=== PATIENT | female | born 1955 | race American Indian/Alaskan Native ===

== ENCOUNTER 2018-08-14 13:37 | Day surgery (SDC) | payer OTHER, SELFPAY ==
[2018-08-14 14:03] VITALS: BP 159/98; PULSE 91; RESP 16; TEMP 37.4; O2SAT 98; BMI 32.3
[2018-08-14] MEDS: LACTATED RINGERS 1,000 ML 42 ML IV (14:26)
--- NOTE | 2018-08-14 15:03 | PM.HP.1 ---
History of Present Illness Chief complaint: colonoscopy w/biopsy [id number] Patient History Medical History Allergic rhinitis (Chronic 1957) Anxiety (Chronic Unknown) Depression (Chronic Unknown) Hearing loss (Chronic 2015) Osteoarthritis (Chronic 1977) Osteopenia (Chronic 2010) Osteoporosis (Chronic Unknown) PTSD (post-traumatic stress disorder) (Chronic Unknown) Sleep apnea (Chronic Unknown) Tinnitus of both ears (Chronic 2014) Urinary incontinence (Chronic 2016) Chickenpox (Resolved 1959) Fractures (Resolved 2015) History of musculoskeletal cancer (Resolved 2011) Measles (Resolved 1960) Mumps (Resolved 1968) Soft tissue sarcoma of left thigh (Resolved 2011) Surgical History H/O colonoscopy with polypectomy (Chronic) Hx of myomectomy (Resolved 2009) Hx of surgical procedure (Resolved 2011) Hx of surgical procedure (Resolved ~2013) Hx of thumb surgery (Resolved 2009) S/P removal of thyroid nodule (Resolved 10/2012) History of gastric bypass (2010) Status post surgery (12/28/08) Family & Social History Social History: household members spouse Tobacco & Substance use: Smoking Status Former smoker alcohol intake never Meds Home Medications Medication Instructions Recorded Confirmed Type [COMPOUNDED HORMONES] TOPICAL QDAY #0 07/05/12 04/19/18 History MULTIVITAMIN (Fruity Vitamin) 1 tabs PO #0 08/19/12 04/19/18 History [MOVE FREE] #0 08/19/12 04/19/18 History nitrofurantoin monohyd/m-cryst 100 mg PO PRN PRN #30 cap 03/16/17 04/19/18 Rx [Macrobid] [Prevagen extra ] #0 05/31/17 04/19/18 History Bimatoprost (LATISSE) 1 drp OPHTH HS #3 ml 10/19/17 04/19/18 Rx jxkpdgqf-jucvvgtei-VX 1 drp OTIC TID #10 ml 12/18/17 04/19/18 Rx albuterol sulfate HFA 90 1 - 2 puff INHALATION Q4HP PRN #18 01/31/18 04/19/18 Rx mcg/actuation aerosol inhaler gram bupropion HCl XL 300 mg 24 hr 300 mg PO QAM #90 tab 01/31/18 04/19/18 Rx tablet, extended release epinephrine 0.3 mg/0.3 mL 0.3 mg SUBCUT PRN PRN #1 kit 01/31/18 04/19/18 Rx injection, auto-injector tramadol 50 mg tablet 100 mg PO .COMPLEX PRN #240 tab 01/31/18 04/19/18 Rx MDD 8 tab nystatin 100,000 unit/gram topical 1 applictn TOP TID #30 gram 02/16/18 04/19/18 Rx ointment Est/Tst/Prog/DHEA See Label Instructions TOP .QDAY 03/07/18 04/19/18 Rx #30 ml alprazolam 1 mg tablet 1 mg PO BID PRN #180 tab 03/12/18 04/19/18 Rx clonazepam 0.5 mg tablet 0.5 mg PO HSP #90 tab 03/12/18 04/19/18 Rx loperamide 2 mg capsule 2 mg PO Q2-4H #240 cap 03/29/18 04/19/18 Rx teriparatide 20 mcg/dose (600 20 mcg SUBCUT DAILY #2.4 ml 04/19/18 04/19/18 Rx mcg/2.4 mL) subcutaneous pen injector celecoxib 200 mg capsule 200 mg PO DAILY #30 cap 08/07/18 Rx teriparatide [Forteo] 20 mcg SUBCUT DAILY 08/14/18 08/14/18 History Allergies Allergy/AdvReac Type Severity Reaction Status Date / Time sulfamethoxazole Allergy Severe HIVES AND Verified 08/14/18 14:18 [From ] THROAT SWELLING trimethoprim [From ] Allergy Severe HIVES AND Verified 08/14/18 14:18 THROAT SWELLING venom-honey bee Allergy Severe ANAPHYLAXIS Verified 08/14/18 14:18 [BEE VENOM (HONEY BEE)] ciprofloxacin [CIPROFLOXACIN] Allergy Intermediate ringing in Verified 08/14/18 14:18 ears, swollen gums, itchy, peanut [PEANUT] Allergy Intermediate ITCHING Verified 08/14/18 14:18 alendronate sodium AdvReac Severe FELT Verified 08/14/18 14:18 [ALENDRONATE SODIUM] TERRIBLE, CHEST PAINS ergot alkaloids AdvReac Severe I DON'T Verified 08/14/18 14:18 [ERGOT ALKALOIDS] FEEL RIGHT, FEELING LIKE I'M FALLING BACKWARD sumatriptan [SUMATRIPTAN] AdvReac Mild FELT Verified 08/14/18 14:18 WEIRD FOR 2 DAYS Exam Vital Signs (past 8 hours): - 08/14/18 14:03 Temperature 99.4 F Pulse Rate 91 H Respiratory Rate 16 Blood Pressure 159/98 H Pulse Oximetry 98 Oxygen Delivery Method Room Air Narrative Exam Narrative: Oropharynx free of lesions Chest clear to auscultation percussion Cardiac exam reveals no S3 or murmur Assessment & Plan Plan: Assessment/Plan Narrative: Personal and family history of colon polyps need for follow-up colonoscopy. History of PTSD and disability We will plan on scheduling her colonoscopy at the hospital with anesthesia due to PTSD. Risks benefits alternatives have been explained.
--- NOTE | 2018-08-14 15:08 | PM.OP.ENDO ---
Operative Date/Time/Diagnoses Date of procedure: 08/14/18 Time of procedure: 15:08 Pre-op diagnosis: See indications and findings Procedure & Clinicians Study performed: Colonoscopy Same procedure as scheduled: Yes Indications: Personal history and family history of colon polyps Surgeon: Anthony Torrez Procedure Notes Procedure in detail: After informed consent was obtained the patient was placed in left lateral decubitus position. The video colonoscope was introduced the rectum slowly advanced to the cecum. On slow withdrawal mucosa was carefully examined. The scope was removed patient tolerated the procedure well. Blood loss none Complications none Sedation general per anesthesia Findings 1. Tortuous colonoscopy to cecum. No polyp seen. Patient should have follow-up colonoscopy in 5 years.
[2018-08-14 15:46] VITALS: BP 117/78; PULSE 83; TEMP 36.3; O2SAT 98
[2018-08-14 15:54] VITALS: BP 140/83; PULSE 72; RESP 15; O2SAT 95
[2018-08-14 16:02] VITALS: BP 139/78; PULSE 67; RESP 25; O2SAT 98
[2018-08-14 16:22] VITALS: BP 138/86; PULSE 59; RESP 12; TEMP 36.3; O2SAT 100
== END 2018-08-14 16:30 | disposition home or self-care (01) ==
PROVIDERS: PCP Family Medicine; Visit Provider Internal Medicine Gastroenterology
PROC: 0DJD8ZZ Inspection of Lower Intestinal Tract, Via Natural or Artificial Opening Endoscopic (ICD-10-PCS; CPT 45378; principal; 2018-08-14 15:00)
DX: Z86.010 Personal history of colon polyps (principal); E66.9 Obesity, unspecified; G47.33 Obstructive sleep apnea (adult) (pediatric); Z87.891 Personal history of nicotine dependence; F43.10 Post-traumatic stress disorder, unspecified
CPT/HCPCS: 45378; J2405; J2704; J3010

== ENCOUNTER 2019-02-07 18:25 | Emergency (ER) | payer MEDICARE, OTHER, SELFPAY ==
[2019-02-07 18:31] VITALS: BP 134/79; PULSE 76; RESP 19; TEMP 37; O2SAT 97; BMI 34.3
--- NOTE | 2019-02-07 19:05 | DI.RAD.S_ITS ---
PROCEDURE: XR CHEST 1V INDICATIONS: chest pain TECHNIQUE: One view of the chest was acquired. COMPARISON: None. FINDINGS: A portion of the left lateral chest is obscured. Surgical changes and devices: None. Lungs and pleura: Lungs are clear. No pleural effusions or pneumothorax. Mediastinum: Mediastinal contours appear normal. Heart size is normal. Bones and chest wall: No suspicious bony lesions. Overlying soft tissues appear unremarkable. IMPRESSION: No acute process as visualized. Dictated by: Darline Hernandez M.D. on 02/07/2019 at 20:10 Approved by: Darline Hernandez M.D. on 02/07/2019 at 20:11
[2019-02-07 19:10] LABS: Add Manual Diff / Slide Review NO; Basophils Absolute Auto 0 /uL (0-100); Basophils Percent Auto 0.6 % (0-2); Eosinophils Absolute Auto 900 /uL (0-450); Eosinophils Percent Auto 12.4 % (2-4); Hematocrit 30.4 % (36-46); Lymphocytes Absolute Auto 900 /uL (1100-4500); Lymphocytes Percent Auto 12.2 % (25-40); Mean Corpuscular Hemoglobin 26.8 PG (26-34); Mean Corpuscular Volume 81.2 fL (80-100); Monocytes Absolute Auto 700 /uL (0-900); Monocytes Percent Auto 9.7 % (3-14); Neutrophils Absolute Auto 4700 /uL (1500-7000); Neutrophils Percent Auto 65.1 % (50-75); Platelet Count 316 X10^3/uL (150-400); Red Blood Cell Count 3.74 X10^6/uL (4.0-5.2); Red Cell Distribution Width 15.3 % (11.6-14.8); White Blood Cell Count 7.2 X10^3/uL (4.5-11.0)
--- NOTE | 2019-02-07 19:10 | ED.SOB ---
HPI - SOB/Dyspnea General Chief Complaint: Shortness of Breath/Dyspnea Stated Complaint: SOB WHEEZING Time Seen by Provider: 02/07/19 18:44 Source: patient and family Mode of arrival: ambulatory Limitations: no limitations History of Present Illness 64-year-old female, former smoker with history of asthma presents with a few days of wheezing and trouble breathing. She has been using her puffer at home but does not have a spacer. She has a nebulizer but has been out of nebs. She has had no productive cough and denies fever or shaking chills. She had a dental procedure and was placed on amoxicillin and oxycodone. She has taken penicillin before and had no trouble. She stopped taking amoxicillin when she developed diarrhea. She follows up with her dentist in a few days. She has no widespread rash, swelling of lips, tongue or throat. Complaint: shortness of breath Onset (ago): day(s) Context: allergen exposure Severity: moderate Consistency/Duration: constant Relieving factors: nothing Exacerbating factors: nothing Known history of: asthma Associated symptoms: denies other symptoms Treatment prior to arrival: bronchodilator Related Data Home oxygen amount: none Previous Rx's Medication Instructions Recorded Disabled Parking Permit See Rx Instructions .ROUTE 12/27/18 .COMPLEX #1 each teriparatide 20 mcg/dose (600 20 mcg SUBCUT DAILY #2.4 ml 12/27/18 mcg/2.4 mL) subcutaneous pen injector albuterol sulfate HFA 90 2 puff INHALATION Q6H PRN #6.7 gram 12/30/18 mcg/actuation aerosol inhaler lorazepam 1 mg tablet See Rx Instructions PO BID PRN #45 01/23/19 tab tramadol 50 mg tablet 50 mg PO BID PRN #30 tab 01/23/19 albuterol sulfate 2.5 mg INHALATION Q4-6H PRN #90 ml 02/07/19 prednisone 20 mg PO DAILY #5 tab 02/07/19 Allergies Allergy/AdvReac Type Severity Reaction Status Date / Time sulfamethoxazole Allergy Severe HIVES AND Verified 08/14/18 14:18 [From ] THROAT SWELLING trimethoprim [From ] Allergy Severe HIVES AND Verified 08/14/18 14:18 THROAT SWELLING venom-honey bee Allergy Severe ANAPHYLAXIS Verified 08/14/18 14:18 [BEE VENOM (HONEY BEE)] ciprofloxacin [CIPROFLOXACIN] Allergy Intermediate ringing in Verified 08/14/18 14:18 ears, swollen gums, itchy, peanut [PEANUT] Allergy Intermediate ITCHING Verified 08/14/18 14:18 alendronate sodium AdvReac Severe FELT Verified 08/14/18 14:18 [ALENDRONATE SODIUM] TERRIBLE, CHEST PAINS ergot alkaloids AdvReac Severe I DON'T Verified 08/14/18 14:18 [ERGOT ALKALOIDS] FEEL RIGHT, FEELING LIKE I'M FALLING BACKWARD sumatriptan [SUMATRIPTAN] AdvReac Mild FELT Verified 08/14/18 14:18 WEIRD FOR 2 DAYS Review of Systems Constitutional Denies chills, Denies fever(s), Denies lethargy and Denies weakness Eyes Denies change in vision, Denies eye discharge, Denies irritation and Denies loss of vision ENT Ears, Nose, Mouth, and Throat: Denies change in voice, Denies neck pain and Denies sore throat Cardiovascular Denies chest pain, Denies irregular heart rhythm, Denies lightheadedness, Denies palpitations, Reports dyspnea, Denies dyspnea on exertion and Denies orthopnea Respiratory Reports cough, Reports dyspnea, Denies dyspnea on exertion and Denies wheezing Gastrointestinal Gastrointestinal: Denies abdominal pain, Denies change in bowel habits, Denies diarrhea, Denies nausea and Denies vomiting Genitourinary Denies hematuria, Denies flank pain, Denies urinary incontinence and Denies urinary urgency Musculoskeletal Denies neck pain Integumentary/Breasts Denies pruritus, Denies erythema, Denies rash and Denies wounds Neurologic Denies confusion, Denies loss of vision and Denies weakness Psychiatric Denies anxiety, Denies confusion, Denies depression, Denies homicidal ideation and Denies suicidal ideation Endocrine Denies palpitations Hematologic/Lymphatic Denies easy bruising Allergic/Immunologic Denies wheezing [facility] Medical History Allergic rhinitis (Chronic 1957) Anxiety (Chronic ~1975) Depression (Chronic ~1975) Hearing loss (Chronic 2014) Osteoarthritis (Chronic 1977) Osteopenia (Chronic 2009) Osteoporosis (Chronic ~2006) PTSD (post-traumatic stress disorder) (Chronic ~1975) Sleep apnea (Chronic Unknown) Tinnitus of both ears (Chronic 2014) Urinary incontinence (Chronic 2015) Vertigo (Chronic ~2004) Chickenpox (Resolved 1959) Fractures (Resolved 2015) History of musculoskeletal cancer (Resolved 2011) Measles (Resolved 1960) Mumps (Resolved 1968) Soft tissue sarcoma of left thigh (Resolved 2011) Surgical History Anesthesia (Resolved) H/O colonoscopy with polypectomy (Resolved) History of knee replacement (Resolved ~01/2017) Hx of myomectomy (Resolved 2009) Hx of surgical procedure (Resolved 2011) Hx of surgical procedure (Resolved ~2013) Hx of thumb surgery (Resolved 2009) S/P removal of thyroid nodule (Resolved 10/2012) History of gastric bypass (2010) Status post surgery (12/28/08) Family History Mother Diabetes mellitus Hypertension Heart disease Father Homicide Brother Cancer Grandfather Cancer Grandmother No problems noted. Grandfather Accident Grandmother Stroke Social History marital status: number of children: 2 household members: spouse lives independently: Yes education level: other ([employer]) occupational status: other (retired) Smoking Status: Former smoker alcohol intake: never substance use type: marijuana (Pain control with the edibles or oils on the site of the pain) Family History Mother Diabetes mellitus Hypertension Heart disease Father Homicide Brother Cancer Grandfather Cancer Grandmother No problems noted. Grandfather Accident Grandmother Stroke Social History marital status: number of children: 2 household members: spouse lives independently: Yes education level: other ([employer]) occupational status: other (retired) Smoking Status: Former smoker alcohol intake: never substance use type: marijuana (Pain control with the edibles or oils on the site of the pain) Exam Narrative Exam Narrative: GENERAL: 64-year-old female with obvious trouble breathing, wheeze audible from the door HEAD: Atraumatic. Normocephalic. No temporal or scalp tenderness. EYES: Pupils equal round and reactive. Extraocular motions intact. No scleral icterus. No injection or drainage. ENT: Nose without bleeding, purulent drainage or septal hematoma. Throat without erythema, tonsillar hypertrophy or exudate. Uvula midline. Airway patent. NECK: Trachea midline. No JVD or lymphadenopathy. Supple, nontender, no meningeal signs. CARDIOVASCULAR: Regular rate and rhythm without murmurs, gallops, or rubs. RESPIRATORY: Expiratory wheeze in all perez, no other signs of obvious respiratory distress GASTROINTESTINAL: Abdomen soft, non-tender, nondistended. No hepato-splenomegaly, or palpable masses. No guarding. EXTREMITIES: No clubbing, cyanosis, or edema. No joint tenderness, effusion, or edema noted. BACK: Nontender without deformity or crepitance. No flank tenderness. NEURO: AOx3. SKIN: No rash or erythema. Initial Vital Signs Initial Vital Signs: Vital Signs Temperature 98.6 F 02/07/19 18:31 Pulse Rate 76 02/07/19 18:31 Respiratory Rate 19 02/07/19 18:31 Blood Pressure 134/79 02/07/19 18:31 Pulse Oximetry 97 02/07/19 18:31 Course Orders Ordered: ED Orders 02/07/19 18:44 EKG-12 Lead Routine 02/07/19 19:05 XR chest 1V Stat EKG-12 Lead Stat 02/07/19 19:06 Complete Blood Count AUTO DIFF Stat Comprehensive Metabolic Panel Stat Lipase Stat Partial Thromboplastin Time Stat Prothrombin Time INR Stat Troponin & CK Cardiac Panel Stat Discontinued Medications Albuterol/Ipratropium (Duoneb) 3 ml INH NOW ONE Stop: 02/07/19 19:25 Last Admin: 02/07/19 19:26 Dose: 3 ml Prednisone (Deltasone) 40 mg PO NOW ONE Stop: 02/07/19 19:20 Reevaluation(s) Reevaluation #1: Notable improvement after DuoNeb. Patient given a spacer by respiratory Vital Signs - 8 hr 02/07/19 18:31 02/07/19 19:26 02/07/19 19:52 Temperature 98.6 F Pulse Rate 76 76 81 Respiratory Rate 19 16 19 Blood Pressure 134/79 Blood Pressure [Left Arm] 118/83 Pulse Oximetry 97 95 95 MDM - SOB/Dyspnea Lab Data Result diagrams: 02/07/19 19:06 02/07/19 19:06 Lab Results 02/07/19 02/07/19 02/07/19 Range/Units 19:06 19:06 19:06 WBC 7.2 (4.5-11.0) X10^3/uL RBC 3.74 L (4.0-5.2) X10^6/uL Hgb 10.0 L (12.0-16.0) g/dL Hct 30.4 L (36-46) % MCV 81.2 (80-100) fL MCH 26.8 (26-34) PG MCHC 33.0 (30-36) % RDW 15.3 H (11.6-14.8) % Plt Count 316 (150-400) X10^3/uL Neut % (Auto) 65.1 (50-75) % Lymph % (Auto) 12.2 L (25-40) % Wythe % (Auto) 9.7 (3-14) % Eos % (Auto) 12.4 H (2-4) % Baso % (Auto) 0.6 (0-2) % Neut # (Auto) 4700 (5531-2846) /uL Lymph # (Auto) 900 L (7615-9060) /uL Wythe # (Auto) 700 (0-900) /uL Eos # (Auto) 900 H (0-450) /uL Baso # (Auto) 0 (0-100) /uL PT 11.7 (10.1-12.7) SECONDS INR 1.0 (0.9-1.3) APTT 29 (26.4-36.2) SECONDS Sodium 140 (137-145) mmol/L Potassium 3.5 (3.4-5.1) mmol/L Chloride 109 H (98-107) mmol/L Carbon Dioxide 23 (22-32) mmol/L BUN 27 H (7-17) mg/dL Creatinine 0.60 (0.52-1.04) mg/dL Estimated GFR > 60.0 (>60) mL/min BUN/Creatinine Ratio 45.0 H (6-22) Glucose 93 (80-110) mg/dL Calcium 8.9 (8.4-10.2) mg/dL Total Bilirubin 0.4 (0.2-1.3) mg/dL AST 25 (14-36) IU/L ALT 22 (9-52) IU/L Alkaline Phosphatase 117 (38-126) U/L Total Creatine Kinase 200 H (30-135) U/L CK-MB (CK-2) 2.09 (<2.37) ng/mL CK-MB (CK-2) Rel Index 1.0 L (1.5-5.0) % Troponin I < 0.012 (0.01-0.034) ng/mL Total Protein 6.5 (6.3-8.2) g/dL Albumin 3.7 (3.5-5.0) g/dL Globulin 2.8 (1.7-4.1) g/dL Albumin/Globulin Ratio 1.3 (1.0-2.8) Lipase 34 (23-300) U/L MDM Narrative Medical decision making narrative: Patient develops wheezing and increased use bronchodilators since a dental procedure. She has had no signs of allergic reaction such as urticaria or swelling of lips, tongue or throat. She does express some concern about the increased pollen and allergens in the air. We also discussed the histamine release that opioid medications cause. Allergic reaction to amoxicillin considered but thought less likely given other portions of the scenario. Discharge Plan Departure Patient Disposition: Home Clinical Impression: Asthma with exacerbation Qualifiers: Asthma severity: mild Asthma persistence: unspecified Qualified Code(s): J45.901 - Unspecified asthma with (acute) exacerbation Instructions: DI for Asthma -- Adult Activity Restrictions/Additional Instructions: *You have been diagnosed with [wheezing, likely a consequence of environmental allergens and pain medications.] *What to do: *Take medications as directed: Your prescriptions have been electronically transmitted to [facility] at your request *Follow up with your primary care provider in 2-3 days, call for an appointment. Let them know you were seen in the Emergency Department and that we ask that you be seen in follow up *Return to ER if you should have any new, worsening or concerning symptoms Prescriptions: New prednisone 20 mg tablet 20 mg PO DAILY Qty: 5 RF: 0 albuterol sulfate 2.5 mg /3 mL (0.083 %) solution for nebulization 2.5 mg INHALATION Q4-6H PRN (Reason: shortness of breath or wheezing) Qty: 90 RF: 0 No Action lorazepam 1 mg tablet See Rx Instructions PO BID PRN (Reason: insomnia or anxiety) Qty: 45 RF: 0 tramadol 50 mg tablet 50 mg PO BID PRN (Reason: pain) Qty: 30 RF: 0 Forteo 20 mcg/dose - 600 mcg/2.4 mL pen injector 20 mcg SUBCUT DAILY Qty: 2.4 RF: 0 Disabled Parking Permit See Rx Instructions .ROUTE .COMPLEX Qty: 1 RF: 0 albuterol sulfate 90 mcg/actuation HFA aerosol inhaler 2 puff INHALATION Q6H PRN (Reason: shortness of breath or wheezing) Qty: 6.7 RF: 1 Referrals: Lauren Talavera DO [Primary Care Provider] -
[2019-02-07 19:17] LABS: Prothrombin Time 11.7 SECONDS (10.1-12.7)
[2019-02-07 19:20] LABS: PTT Partial Thromboplastin Tim 29 SECONDS (26.4-36.2)
[2019-02-07 19:23] LABS: Alanine Aminotransferase 22 IU/L (9-52); Albumin 3.7 g/dL (3.5-5.0); Albumin Globulin Ratio 1.3 (1.0-2.8); Alkaline Phosphatase 117 U/L (38-126); Aspartate Aminotransferase 25 IU/L (14-36); Bilirubin Total 0.4 mg/dL (0.2-1.3); Blood Urea Nitrogen 27 mg/dL (7-17); Calcium 8.9 mg/dL (8.4-10.2); Carbon Dioxide 23 mmol/L (22-32); Chloride 109 mmol/L (98-107); Creatine Kinase 200 U/L (30-135); Estimated Glomerular Filt Rate > 60.0 mL/min (>60); Globulin 2.8 g/dL (1.7-4.1); Glucose 93 mg/dL (80-110); HEMOLYSIS < 15 (0-50); Lipase 34 U/L (23-300); Potassium 3.5 mmol/L (3.4-5.1); Sodium 140 mmol/L (137-145); Total Protein 6.5 g/dL (6.3-8.2)
[2019-02-07 19:26] VITALS: PULSE 76; RESP 16; O2SAT 95
[2019-02-07] MEDS: ALBUTEROL/IPRATROPIUM 3 ML AMPUL INH (19:26)
[2019-02-07 19:34] LABS: Troponin I < 0.012 ng/mL (0.01-0.034)
[2019-02-07 19:38] LABS: Creatine Kinase MB 2.09 ng/mL (<2.37)
[2019-02-07 19:52] VITALS: BP 118/83; PULSE 81; RESP 19; O2SAT 95
[2019-02-07] MEDS: predniSONE 20 MG TABLET 40 MG PO (20:04)
== END 2019-02-07 20:24 | disposition home or self-care (01) ==
PROVIDERS: Emergency Provider Emergency Medicine; PCP Family Medicine
DX: J45.901 Unspecified asthma with (acute) exacerbation (principal)
CPT/HCPCS: 36591; 71045; 80053; 82550; 82553; 83690; 84484; 85025; 85610; 85730; 93005; 93010; 94640; 99283; 99285

== ENCOUNTER → 2019-08-12 15:24 | Outpatient (CLI) | payer MEDICARE, OTHER, SELFPAY ==
--- NOTE | 2019-08-12 15:27 | DI.RAD.S_ITS ---
PROCEDURE: XR KNEE RT 3V INDICATIONS: Fell on right knee TECHNIQUE: 3 views of the knee were acquired. COMPARISON: , , KNEE 1-2 VIEWS RIGHT, 01/22/2017, 11:37. FINDINGS: Bones: No fractures or dislocations. No suspicious bony lesions. Soft tissues: No joint effusion. No suspicious soft tissue calcifications. IMPRESSION: Expected postoperative alignment No fracture Dictated by: Toney Rios M.D. on 08/12/2019 at 16:17 Approved by: Toney Rois M.D. on 08/12/2019 at 16:17
== END ==
PROVIDERS: PCP Family Medicine; Visit Provider Family Medicine
DX: M25.561 Pain in right knee (principal)
CPT/HCPCS: 73562

== ENCOUNTER → 2019-09-11 14:39 | Outpatient (CLI) | payer MEDICARE, OTHER, SELFPAY ==
--- NOTE | 2019-09-11 14:41 | DI.NM.S_ITS ---
PROCEDURE: NM FORREST PERF SPECT R&S PHARM Rest and pharmacological stress myocardial perfusion SPECT with gated imaging and ejection fraction RADIOPHARMACEUTICAL: 27.1 mCi Tc-99m tetrafosmin IV at rest and 26.8 mCi Tc-99m tetrafosmin IV at peak effect of pharmacological stress. [id number]-wjteznxy was performed. INDICATIONS: chest pain, abnormal ekg TECHNIQUE: Radiopharmaceutical was injected at peak stress test, and also at rest. SPECT images were obtained. SPECT myocardial perfusion images were displayed in short axis, horizontal long axis, and vertical long axis views. Gated images were reviewed using [employer] software. COMPARISON: None. CARDIAC STRESS: A pharmacologic stress test was performed under the supervision of an attending staff, using an infusion of lexiscan 0.4mg IV X1 . Hemodynamic data: There is normal blood pressure and heart rate response to pharmacologic stress. Symptoms: The patient denied anginal chest pain. Aminophylline: none EKG: No diagnostic changes of ischemia; no ectopy. FINDINGS: Raw data: There is good myocardial uptake of radiotracer. No significant motion artifacts. Kzjc-eh-yzwac ratio is 0.39 (normal is less than 0.38 for tetrafosmin tracer). Left ventricle function: Gated images demonstrate normal left ventricular wall thickening. No segmental wall motion abnormalities. No transient ischemic dilation; TID is 1.0 (normal less than 1.3). Left ventricle resting end diastolic volume is 98 mL. Left ventricle stress ejection fraction is 76%; normal range is above 45%. Myocardial perfusion: There is normal distribution of activity in the right and left ventricular myocardium. No fixed or reversible perfusion defects. IMPRESSION: Low risk, normal pharmaceutical nuclear stress test. 1) No perfusion evidence of ischemia or infarction. 2) Normal left ventricular size, wall motion, and systolic funcion (EF post stress 76%). 3) No ECG evidence of ischemia. 4) No angina during the study. 5) No prior nuclear stress test avaliable for comparison. Dictated by: Solomon Young MD on 09/12/2019 at 16:38 Approved by: Solomon Young MD on 09/12/2019 at 16:40
== END ==
PROVIDERS: PCP Family Medicine; Visit Provider Family Medicine
DX: R07.9 Chest pain, unspecified (principal); R94.31 Abnormal electrocardiogram [ECG] [EKG]
CPT/HCPCS: 78452; 93016; 93017; 93018; A9502; J2785

== ENCOUNTER → 2019-10-29 12:19 | Outpatient (CLI) | payer MEDICARE, OTHER, SELFPAY ==
--- NOTE | 2019-10-29 | DI.MG.S_ITS ---
BILATERAL DIGITAL SCREENING MAMMOGRAM 3D/2D WITH CAD: 10/29/2019 CLINICAL: Routine screening. Comparison is made to exams dated: 10/22/2017 mammogram - [facility], 08/22/2013 mammogram, and [facility] The tissue of both breasts is heterogeneously dense. This may lower the sensitivity of mammography. Current study was also evaluated with a Computer Aided Detection (CAD) system. There are benign calcifications in both breasts. There also are benign vascular calcifications in both breasts. No significant masses, calcifications, or other findings are seen in either breast. There has been no significant interval change. IMPRESSION: There is no mammographic evidence of malignancy. A 1 year screening mammogram is recommended. This exam was interpreted at Station ID: [id number]. NOTE: For mammograms, a report in lay terms will be sent to the patient. Approximately 15% of breast malignancies will not be visualized mammographically. In the management of a palpable breast mass, a negative mammogram must not discourage biopsy of a clinically suspicious lesion. Electronically Signed By: Collin mays/lacy:10/30/2019 10:56:51 letter sent: Normal Exam ACR BI-RADS Category 2: Benign Finding(s) [id number]
== END ==
PROVIDERS: PCP Family Medicine; Referring Provider Family Medicine; Visit Provider Family Medicine
DX: Z12.31 Encounter for screening mammogram for malignant neoplasm of breast (principal)
CPT/HCPCS: 77063; 77067

== ENCOUNTER → 2019-12-29 16:30 | Outpatient (CLI) | payer MEDICARE, OTHER, SELFPAY ==
[2019-12-30 22:38] LABS: COVID19 Sendout Not Detected (Not Detected)
== END ==
PROVIDERS: PCP Family Medicine; Visit Provider Registered Nurse
DX: R06.02 Shortness of breath (principal)
CPT/HCPCS: 87635

== ENCOUNTER → 2020-01-27 11:56 | Outpatient (CLI) | payer MEDICARE, OTHER, SELFPAY | PROVIDERS: PCP Family Medicine; Visit Provider Family Medicine | DX: R30.0 Dysuria (principal) | CPT/HCPCS: 87077; 87086; 87186 ==

== ENCOUNTER → 2020-04-13 15:02 | Outpatient (CLI) | payer MEDICARE, OTHER, SELFPAY ==
[2020-04-13 15:27] LABS: Add Manual Diff / Slide Review NO; Basophils Absolute Auto 100 /uL (0-100); Basophils Percent Auto 1.3 % (0-2); Eosinophils Absolute Auto 500 /uL (0-450); Eosinophils Percent Auto 4.8 % (2-4); Hematocrit 29.5 % (36-46); Hemoglobin 9.1 g/dL (12.0-16.0); Lymphocytes Absolute Auto 1700 /uL (1100-4500); Lymphocytes Percent Auto 16.8 % (25-40); Mean Corpuscular Hemoglobin 20.3 PG (26-34); Mean Corpuscular Volume 65.4 fL (80-100); Monocytes Absolute Auto 600 /uL (0-900); Monocytes Percent Auto 5.9 % (3-14); Neutrophils Absolute Auto 7200 /uL (1500-7000); Neutrophils Percent Auto 71.2 % (50-75); Platelet Count 411 X10^3/uL (150-400); Red Blood Cell Count 4.51 X10^6/uL (4.0-5.2); Red Cell Distribution Width 18.7 % (11.6-14.8)
[2020-04-13 15:59] LABS: Prothrombin Time 12.1 SECONDS (10.1-12.7)
[2020-04-13 16:04] LABS: Alanine Aminotransferase 14 IU/L (<35); Albumin 4.2 g/dL (3.5-5.0); Albumin Globulin Ratio 1.8 (1.0-2.8); Alkaline Phosphatase 117 U/L (38-126); Aspartate Aminotransferase 22 IU/L (14-36); BUN Creatinine Ratio 46.7 (6-22); Bilirubin Total 0.5 mg/dL (0.2-1.3); Blood Urea Nitrogen 21 mg/dL (7-17); Calcium 9.4 mg/dL (8.4-10.2); Carbon Dioxide 20 mmol/L (22-32); Chloride 108 mmol/L (98-107); Estimated Glomerular Filt Rate > 60.0 mL/min (>60); Globulin 2.4 g/dL (1.7-4.1); Glucose 106 mg/dL (80-110); HEMOLYSIS < 15 (0-50); Potassium 3.9 mmol/L (3.4-5.1); Sodium 139 mmol/L (137-145); Total Protein 6.6 g/dL (6.3-8.2)
[2020-04-13 17:00] LABS: Anisocytosis 1+; Hypochromasia 1+; Microcytosis 2+; Ovalocytes 1+; Platelet Estimate Adequate on smear; Poikilocytosis 1+
== END ==
PROVIDERS: PCP Family Medicine; Referring Provider Family Medicine; Visit Provider Family Medicine
DX: R23.8 Other skin changes (principal)
CPT/HCPCS: 36415; 80053; 85025; 85610

== ENCOUNTER → 2020-06-26 10:41 | Outpatient (CLI) | payer MEDICARE, OTHER, SELFPAY ==
[2020-06-26 12:20] LABS: Add Manual Diff / Slide Review NO; Basophils Absolute Auto 100 /uL (0-100); Basophils Percent Auto 0.8 % (0-2); Eosinophils Absolute Auto 300 /uL (0-450); Eosinophils Percent Auto 4.1 % (2-4); Hematocrit 30.7 % (36-46); Hemoglobin 9.2 g/dL (12.0-16.0); Lymphocytes Absolute Auto 1500 /uL (1100-4500); Mean Corpuscular Hemoglobin 19.7 PG (26-34); Mean Corpuscular Volume 65.6 fL (80-100); Monocytes Absolute Auto 400 /uL (0-900); Monocytes Percent Auto 5.5 % (3-14); Neutrophils Absolute Auto 5400 /uL (1500-7000); Neutrophils Percent Auto 69.6 % (50-75); Platelet Count 409 X10^3/uL (150-400); Red Blood Cell Count 4.68 X10^6/uL (4.0-5.2); Red Cell Distribution Width 22.4 % (11.6-14.8); White Blood Cell Count 7.7 X10^3/uL (4.5-11.0)
[2020-06-26 13:19] LABS: Ferritin 6 ng/mL (11-264)
[2020-06-26 14:30] LABS: HEMOLYSIS < 15 (0-50); Iron 27 ug/dL (37-170)
[2020-06-26 14:40] LABS: Percent Iron Saturation 6 % (15-50); Total Iron Binding Capacity 433 ug/dL (265-497); Transferrin 343 mg/dL (206-381)
[2020-06-26 14:46] LABS: Hypochromasia 2+; Microcytosis 2+
== END ==
PROVIDERS: PCP Family Medicine; Referring Provider Family Medicine; Visit Provider Family Medicine
DX: D64.9 Anemia, unspecified (principal)
CPT/HCPCS: 82728; 83540; 83550; 85025

== ENCOUNTER → 2020-09-25 11:34 | Outpatient (CLI) | payer MEDICARE, OTHER, SELFPAY ==
[2020-09-25 13:06] LABS: Add Manual Diff / Slide Review NO; Basophils Absolute Auto 100 /uL (0-100); Basophils Percent Auto 0.5 % (0-2); Eosinophils Absolute Auto 400 /uL (0-450); Eosinophils Percent Auto 4.2 % (2-4); Hematocrit 39.1 % (36-46); Hemoglobin 12.6 g/dL (12.0-16.0); Lymphocytes Absolute Auto 1900 /uL (1100-4500); Lymphocytes Percent Auto 18.6 % (25-40); Mean Corpuscular HGB Conc 32.3 % (30-36); Mean Corpuscular Hemoglobin 26.3 PG (26-34); Mean Corpuscular Volume 81.4 fL (80-100); Monocytes Absolute Auto 500 /uL (0-900); Monocytes Percent Auto 5.2 % (3-14); Neutrophils Absolute Auto 7100 /uL (1500-7000); Neutrophils Percent Auto 71.5 % (50-75); Platelet Count 360 X10^3/uL (150-400); Red Blood Cell Count 4.81 X10^6/uL (4.0-5.2); Red Cell Distribution Width 21.6 % (11.6-14.8); White Blood Cell Count 9.9 X10^3/uL (4.5-11.0)
[2020-09-25 13:32] LABS: HEMOLYSIS < 15 (0-50); Iron 49 ug/dL (37-170)
[2020-09-25 13:44] LABS: Percent Iron Saturation 12 % (15-50); Total Iron Binding Capacity 402 ug/dL (265-497); Transferrin 311 mg/dL (206-381)
[2020-09-25 13:58] LABS: Anisocytosis 2+; Microcytosis 1+
[2020-09-25 14:10] LABS: Ferritin 14 ng/mL (11-264)
== END ==
PROVIDERS: PCP Family Medicine; Referring Provider Family Medicine; Visit Provider Family Medicine
DX: D50.9 Iron deficiency anemia, unspecified (principal)
CPT/HCPCS: 36415; 82728; 83540; 83550; 85025

== ENCOUNTER → 2020-11-26 12:23 | Outpatient (CLI) | payer MEDICARE, OTHER, SELFPAY ==
--- NOTE | 2020-11-26 12:24 | DI.RAD.S_ITS ---
PROCEDURE: XR TOE RT MIN 2V INDICATIONS: right third toe pain and deformity TECHNIQUE: 3 views of the right toe(s) acquired. COMPARISON: None. FINDINGS: Bones: No fractures or dislocations. No suspicious bony lesions. Moderate 1st MTP joint degeneration. Severe 3rd toe PIP joint degeneration. Severe narrowing of the 3rd PIP toe joint space. Scattered degenerative subchondral sclerosis and spurring. Soft tissues: No suspicious soft tissue densities. 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 Graph Dictated by: Toney Rios M.D. on 11/26/2020 at 14:55 Approved by: Toney Rios M.D. on 11/26/2020 at 14:59
== END ==
PROVIDERS: PCP Family Medicine; Referring Provider Family Medicine; Visit Provider Family Medicine
DX: M79.674 Pain in right toe(s) (principal); M19.071 Primary osteoarthritis, right ankle and foot
CPT/HCPCS: 73660

== ENCOUNTER → 2020-12-28 15:25 | Outpatient (CLI) | payer MEDICARE, OTHER, SELFPAY | PROVIDERS: PCP Family Medicine; Visit Provider Registered Nurse | DX: J02.9 Acute pharyngitis, unspecified (principal) | CPT/HCPCS: 87070 ==

== ENCOUNTER → 2020-12-28 15:47 | Outpatient (CLI) | payer MEDICARE, OTHER, SELFPAY ==
--- NOTE | 2020-12-28 15:51 | DI.RAD.S_ITS ---
PROCEDURE: XR CHEST 2V INDICATIONS: shortness of breath TECHNIQUE: 2 views of the chest were acquired. COMPARISON: [facility], , XR CHEST 1V, 02/07/2019, 19:41. FINDINGS: Surgical changes and devices: Cholecystectomy clips. Lungs and pleura: Lungs are clear. No pleural effusions or pneumothorax. Mediastinum: Mediastinal contours are normal. Heart size is normal. Bones and chest wall: No suspicious bony abnormalities. Soft tissues appear unremarkable. IMPRESSION: No evidence acute pulmonary process. Dictated by: Rylan Robertson M.D. on 12/28/2020 at 17:10 Approved by: Rylan Robertson M.D. on 12/28/2020 at 17:11
== END ==
PROVIDERS: PCP Family Medicine; Referring Provider Registered Nurse; Visit Provider Registered Nurse
DX: R06.02 Shortness of breath (principal); J02.9 Acute pharyngitis, unspecified
CPT/HCPCS: 71046; 87070

== ENCOUNTER → 2021-01-01 13:11 | Outpatient (CLI) | payer MEDICARE, OTHER, SELFPAY ==
--- NOTE | 2021-01-01 13:12 | DI.MG.S_ITS ---
BILATERAL DIGITAL SCREENING MAMMOGRAM 3D/2D WITH CAD: 01/01/2021 CLINICAL: Routine screening. Comparison is made to exams dated: 10/29/2019 mammogram and 10/22/2017 mammogram - [facility]. The tissue of both breasts is heterogeneously dense. This may lower the sensitivity of mammography. Current study was also evaluated with a Computer Aided Detection (CAD) system. There are benign calcifications in both breasts. There also are benign vascular calcifications in both breasts. No significant masses, calcifications, or other findings are seen in either breast. There has been no significant interval change. IMPRESSION: BENIGN There is no mammographic evidence of malignancy. A 1 year screening mammogram is recommended. This exam was interpreted at Station ID: [id number]. NOTE: For mammograms, a report in lay terms will be sent to the patient. Approximately 15% of breast malignancies will not be visualized mammographically. In the management of a palpable breast mass, a negative mammogram must not discourage biopsy of a clinically suspicious lesion. Electronically Signed By: Vincent tiwari/lacy:01/03/2021 08:00:24 letter sent: Normal Exam ACR BI-RADS Category 2: Benign Finding(s) [id number]
== END ==
PROVIDERS: PCP Family Medicine; Referring Provider Family Medicine; Visit Provider Family Medicine
DX: Z12.31 Encounter for screening mammogram for malignant neoplasm of breast (principal)
CPT/HCPCS: 77063; 77067

== ENCOUNTER → 2021-03-07 14:24 | Outpatient (CLI) | payer MEDICARE, OTHER, SELFPAY ==
[2021-03-07 16:46] LABS: COVID19 -Nasal RAPID Negative (Negative)
== END ==
PROVIDERS: PCP Family Medicine; Referring Provider Physician Assistant; Visit Provider Physician Assistant
DX: Z01.812 Encounter for preprocedural laboratory examination (principal); Z20.822 Contact with and (suspected) exposure to COVID-19
CPT/HCPCS: 87635; C9803

== ENCOUNTER 2021-03-09 14:50 | Day surgery (SDC) | payer MEDICARE, OTHER, SELFPAY ==
--- NOTE | 2021-03-09 15:10 | PM.HP.1 ---
History of Present Illness History of Present Illness Date Patient Seen: 03/09/21 Chief complaint: SDC Narrative: history of nausea vomiting and dysphagia status post gastric bypass Patient History Medical History (Updated 02/27/21 @ 13:13 by Lauren Talavera DO) Allergic rhinitis (1957) Anxiety (~1975) Asthma Chickenpox (1959) Depression (~1975) Essential hypertension Fractures (2015) Hearing loss (2014) History of musculoskeletal cancer (2011) Iron deficiency anemia Measles (1960) Mumps (1968) Osteoarthritis (1977) Osteopenia (2009) Osteoporosis (~2006) Panic attack PTSD (post-traumatic stress disorder) (~1975) Sleep apnea (Unknown) 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 Grandfather Accident Grandmother Stroke Social History: household members spouse lives independently Yes Tobacco & Substance use: Smoking Status Former smoker alcohol intake never Substance Use Type does not use Meds Home Medications and Allergies Home Medications Medication Instructions Recorded Confirmed Type Disabled Parking Permit #1 ea 12/29/19 01/11/21 Rx albuterol sulfate 2.5 mg INHALATION Q4-6H PRN #90 ml 12/29/19 01/11/21 Rx nitroglycerin 0.3 mg sublingual 0.3 mg SL Q5M PRN #10 tab 04/06/20 01/11/21 Rx tablet fluticasone 250 mcg-salmeterol 50 1 inhalation INHALATION BID #180 06/22/20 01/11/21 Rx mcg/dose blistr powdr for each inhalation albuterol sulfate 90 mcg/actuation 2 puff INHALATION Q6H PRN #25.5 07/05/20 01/11/21 Rx aerosol inhaler gram varenicline 1 mg tablet 1 mg PO BID #56 tab 07/19/20 01/11/21 Rx azithromycin 250 mg tablet See Rx Instructions PO .COMPLEX #6 12/28/20 01/11/21 Rx tab alprazolam 1 mg tablet 1 mg PO BID PRN #60 tab 02/08/21 02/08/21 Rx guaifenesin 400 mg tablet 400 mg PO QID PRN #30 tab 02/24/21 02/24/21 Rx losartan 50 mg tablet 50 mg PO DAILY #30 tab 02/24/21 02/24/21 Rx pregabalin 150 mg capsule 150 mg PO BID #60 cap 02/24/21 02/24/21 Rx tramadol 50 mg tablet 50 mg PO BID PRN #60 tab 02/24/21 02/24/21 Rx Allergies Allergy/AdvReac Type Severity Reaction Status Date / Time sulfamethoxazole Allergy Severe HIVES AND Verified 01/11/21 14:59 [From ] THROAT SWELLING trimethoprim [From MAYRA] Allergy Severe HIVES AND Verified 01/11/21 14:59 THROAT SWELLING venom-honey bee Allergy Severe ANAPHYLAXIS Verified 01/11/21 14:59 [BEE VENOM (HONEY BEE)] ciprofloxacin [CIPROFLOXACIN] Allergy Intermediate ringing in Verified 01/11/21 14:59 ears, swollen gums, itchy, peanut [PEANUT] Allergy Intermediate ITCHING Verified 01/11/21 14:59 alendronate sodium AdvReac Severe FELT Verified 01/11/21 14:59 [ALENDRONATE SODIUM] TERRIBLE, CHEST PAINS ergot alkaloids AdvReac Severe I DON'T Verified 01/11/21 14:59 [ERGOT ALKALOIDS] FEEL RIGHT, FEELING LIKE I'M FALLING BACKWARD sumatriptan [SUMATRIPTAN] AdvReac Mild FELT Verified 01/11/21 14:59 WEIRD FOR 2 DAYS Exam Vital Signs (past 8 hours): oropharynx free of lesions Chest clear to auscultation percussion Cardiac exam reveals no S3 or murmur Assessment & Plan Assessment & Plan narrative: nausea vomiting and dysphagia with history of gastric bypass. Rule out mechanical stricture and dilated necessary. Risks, benefits, alternatives have been explained.
--- NOTE | 2021-03-09 15:12 | PM.OP.ENDO ---
Operative Date/Time/Diagnoses Date of procedure: 03/09/21 Pre-op diagnosis: See indication and findings Procedure & Clinicians Study performed: EGD Same procedure as scheduled: Yes Indications: nausea vomiting and dysphagia status post gastric bypass Surgeon: Anthony Torrez Procedure Notes Procedure in detail: after informed consent was obtained the patient was placed in left lateral decubitus position. The video upper scope was placed into the oropharynx with the patient's help swelled into the esophagus. The esophagus stomach and duodenum were carefully examined. The scope was removed. The patient tolerated procedure well. Blood loss none Complications none Sedation MAC Findings 1. Evidence of Fern throughout the mid and distal esophagus. Plaques were dark yellow indicating a bit of age I think. 2. Normal lower esophageal sphincter. In fact no evidence for mechanical stricture throughout the esophagus 3. Midsized volume of Lilliana-en-Y weight loss surgery. Anastomoses wide open. Easy to traverse. There is no mechanical evidence for any reason for dysphagia. I suggest we irena treat her for candidiasis with fluconazole for 2 weeks and see how she does. She may need esophageal manometry or an upper GI with a barium pill.
[2021-03-09 15:19] VITALS: BP 145/88; PULSE 76; RESP 18; TEMP 36; O2SAT 98; BMI 34.3
[2021-03-09] MEDS: SODIUM CHLORIDE 0.9% 1,000 ML 84 ML IV (15:33)
[2021-03-09 16:05] VITALS: BP 147/84; PULSE 67; RESP 21; TEMP 36.5; O2SAT 93
[2021-03-09 16:10] VITALS: BP 133/79; PULSE 64; RESP 21; O2SAT 93
[2021-03-09 16:15] VITALS: BP 148/73; PULSE 66; RESP 20; O2SAT 95
[2021-03-09 16:20] VITALS: BP 128/72; PULSE 62; RESP 14; TEMP 36.7; O2SAT 98
[2021-03-09 16:26] VITALS: BP 136/77; PULSE 62; RESP 15; TEMP 36.8
== END 2021-03-09 16:40 | disposition home or self-care (01) ==
PROVIDERS: PCP Family Medicine; Referring Provider Internal Medicine Gastroenterology; Visit Provider Internal Medicine Gastroenterology
PROC: 0DJ08ZZ Inspection of Upper Intestinal Tract, Via Natural or Artificial Opening Endoscopic (ICD-10-PCS; CPT 43235; principal; 2021-03-09 16:00)
DX: R13.19 Other dysphagia (principal); R11.2 Nausea with vomiting, unspecified; Z98.84 Bariatric surgery status; J45.909 Unspecified asthma, uncomplicated; F41.9 Anxiety disorder, unspecified; M79.7 Fibromyalgia; F43.10 Post-traumatic stress disorder, unspecified
CPT/HCPCS: 43235; J2704

== ENCOUNTER → 2021-06-21 12:28 | Outpatient (CLI) | payer MEDICARE, OTHER, SELFPAY ==
[2021-06-21 13:30] LABS: Add Manual Diff / Slide Review NO; Basophils Absolute Auto 0 /uL (0-100); Basophils Percent Auto 0.4 % (0-2); Eosinophils Absolute Auto 500 /uL (0-450); Eosinophils Percent Auto 5.5 % (2-4); Hematocrit 40.2 % (36-46); Hemoglobin 13.1 g/dL (12.0-16.0); Lymphocytes Absolute Auto 1800 /uL (1100-4500); Lymphocytes Percent Auto 19.2 % (25-40); Mean Corpuscular HGB Conc 32.6 % (30-36); Mean Corpuscular Hemoglobin 29.2 PG (26-34); Mean Corpuscular Volume 89.6 fL (80-100); Monocytes Absolute Auto 700 /uL (0-900); Monocytes Percent Auto 7.5 % (3-14); Neutrophils Absolute Auto 6400 /uL (1500-7000); Neutrophils Percent Auto 67.4 % (50-75); Platelet Count 303 X10^3/uL (150-400); Red Blood Cell Count 4.48 X10^6/uL (4.0-5.2); Red Cell Distribution Width 13.5 % (11.6-14.8); White Blood Cell Count 9.5 X10^3/uL (4.5-11.0)
[2021-06-21 14:06] LABS: Alanine Aminotransferase 16 IU/L (<35); Albumin 3.9 g/dL (3.5-5.0); Albumin Globulin Ratio 1.6 (1.0-2.8); Alkaline Phosphatase 104 U/L (38-126); Aspartate Aminotransferase 24 IU/L (14-36); Bilirubin Total 0.5 mg/dL (0.2-1.3); Blood Urea Nitrogen 18 mg/dL (7-17); Calcium 9.2 mg/dL (8.4-10.2); Carbon Dioxide 24 mmol/L (22-32); Chloride 108 mmol/L (98-107); Estimated Glomerular Filt Rate > 60.0 mL/min (>60); Globulin 2.4 g/dL (1.7-4.1); Glucose 64 mg/dL (80-110); HEMOLYSIS < 15 (0-50); Potassium 4.3 mmol/L (3.4-5.1); Sodium 140 mmol/L (137-145); Total Protein 6.3 g/dL (6.3-8.2)
== END ==
PROVIDERS: PCP Family Medicine; Referring Provider Family Medicine; Visit Provider Family Medicine
DX: M81.0 Age-related osteoporosis without current pathological fracture (principal); Z78.0 Asymptomatic menopausal state; I10 Essential (primary) hypertension; M89.49 Other hypertrophic osteoarthropathy, multiple sites; D64.9 Anemia, unspecified; Z87.891 Personal history of nicotine dependence; Z82.62 Family history of osteoporosis
CPT/HCPCS: 36415; 77080; 80053; 85025

== ENCOUNTER → 2021-11-28 18:51 | Outpatient (CLI) | payer MEDICARE, OTHER, SELFPAY ==
--- NOTE | 2021-11-28 18:53 | DI.RAD.S_ITS ---
PROCEDURE: XR SHOULDER LT MIN 2V INDICATIONS: Shoulder pain TECHNIQUE: 3 views of the shoulder were acquired. COMPARISON: None. FINDINGS: Bones: Severe joint space narrowing and osteoarthritic change with subchondral sclerosis and cyst formation. High-riding humeral head suggestive of chronic rotator cuff tear. No fractures or dislocations. No suspicious bony lesions. Visualized ribs appear intact. Soft tissues: No suspicious soft tissue calcifications. IMPRESSION: No acute finding. Severe left shoulder osteoarthritic change and high-riding humeral head suggestive of chronic rotator cuff tear. Dictated by: Murali Benitez M.D. on 11/28/2021 at 19:39 Approved by: Murali Benitez M.D. on 11/28/2021 at 19:40
== END ==
PROVIDERS: PCP Family Medicine; Referring Provider Student in an Organized Health Care Education/Training Program; Visit Provider Student in an Organized Health Care Education/Training Program
DX: M25.512 Pain in left shoulder (principal)
CPT/HCPCS: 73030

== ENCOUNTER → 2022-01-05 17:33 | Outpatient (CLI) | payer MEDICARE, OTHER, SELFPAY ==
[2022-01-05 17:57] LABS: Add Manual Diff / Slide Review NO; Basophils Absolute Auto 100 /uL (0-100); Basophils Percent Auto 1.1 % (0-2); Eosinophils Absolute Auto 400 /uL (0-450); Eosinophils Percent Auto 4.3 % (2-4); Hematocrit 38.1 % (36-46); Hemoglobin 12.8 g/dL (12.0-16.0); Lymphocytes Absolute Auto 1900 /uL (1100-4500); Lymphocytes Percent Auto 22.4 % (25-40); Mean Corpuscular HGB Conc 33.7 % (30-36); Mean Corpuscular Hemoglobin 29.7 PG (26-34); Monocytes Absolute Auto 500 /uL (0-900); Monocytes Percent Auto 5.9 % (3-14); Neutrophils Absolute Auto 5500 /uL (1500-7000); Neutrophils Percent Auto 66.3 % (50-75); Platelet Count 244 X10^3/uL (150-400); Red Blood Cell Count 4.33 X10^6/uL (4.0-5.2); Red Cell Distribution Width 13.7 % (11.6-14.8); White Blood Cell Count 8.3 X10^3/uL (4.5-11.0)
[2022-01-05 18:39] LABS: Ferritin 21 ng/mL (11-264)
[2022-01-05 19:14] LABS: HEMOLYSIS < 15 (0-50); Iron 88 ug/dL (37-170)
[2022-01-05 19:30] LABS: Percent Iron Saturation 28 % (15-50); Total Iron Binding Capacity 315 ug/dL (265-497); Transferrin 248 mg/dL (206-381)
== END ==
PROVIDERS: PCP Family Medicine; Referring Provider Family Medicine; Visit Provider Family Medicine
DX: D50.9 Iron deficiency anemia, unspecified (principal)
CPT/HCPCS: 36415; 82728; 83540; 83550; 85025

== ENCOUNTER → 2022-01-10 10:49 | Outpatient (CLI) | payer MEDICARE, OTHER, SELFPAY ==
--- NOTE | 2022-01-10 10:51 | DI.CT.S_ITS ---
PROCEDURE: CT UE LT WO CON INDICATIONS: Primary osteoarthritis, left shoulder TECHNIQUE: Noncontrast 1-1.5 mm thick sections acquired from the acromioclavicular joint to the inferior scapula, with coronal and sagittal reformatting. COMPARISON: [facility], CR, XR SHOULDER LT MIN 2V, 11/28/2021, 19:01. FINDINGS: Image quality: Excellent. Bones: Is moderate to severe glenohumeral joint osteoarthritic changes are seen with significant joint space narrowing, subchondral sclerosis and cyst formation and prominent inferior marginal osteophyte formation. Moderate acromioclavicular joint osteoarthritic changes also seen with joint space narrowing, subchondral sclerosis and marginal osteophyte formation depressing the musculotendinous junction of supraspinatus. There is no shoulder fracture or dislocation. No suspicious intraosseous lesion. Visualized left upper ribs are intact. Soft tissues: There is no gross full-thickness rotator cuff tendon rupture. Mild to moderate supraspinatus muscle atrophy is seen on sagittal images. No significant joint effusion. No abnormal soft tissue calcifications. No gross intra-articular loose bodies. There is no axillary lymphadenopathy. Visualized left lung field show no gross abnormality. IMPRESSION: 1. Moderate to severe glenohumeral joint osteoarthritis and moderate acromioclavicular joint osteoarthritis. No fracture or dislocation. No suspicious intraosseous lesion. 2. Suggestion of mild to moderate supraspinatus muscle atrophy. No gross full-thickness rotator cuff tendon rupture. No significant joint effusion or gross loose bodies. No abnormal soft tissue calcifications. Dictated by: Markel Carrera M.D. on 01/10/2022 at 12:39 Approved by: Markel Carrera M.D. on 01/10/2022 at 12:43
== END ==
PROVIDERS: PCP Family Medicine; Referring Provider Orthopaedic Surgery; Visit Provider Orthopaedic Surgery
DX: M19.012 Primary osteoarthritis, left shoulder (principal)
CPT/HCPCS: 73200

== ENCOUNTER → 2022-01-31 14:55 | Outpatient (CLI) | payer MEDICARE, OTHER, SELFPAY ==
[2022-01-31 16:40] LABS: Alanine Aminotransferase 14 IU/L (<35); Albumin 4.1 g/dL (3.5-5.0); Albumin Globulin Ratio 1.3 (1.0-2.8); Alkaline Phosphatase 109 U/L (38-126); Aspartate Aminotransferase 23 IU/L (14-36); Bilirubin Total 0.7 mg/dL (0.2-1.3); Blood Urea Nitrogen 15 mg/dL (7-17); Calcium 8.5 mg/dL (8.4-10.2); Carbon Dioxide 27 mmol/L (22-32); Chloride 108 mmol/L (98-107); Estimated Glomerular Filt Rate > 60 mL/min (>60); Globulin 3.1 g/dL (1.7-4.1); Glucose 97 mg/dL (80-110); HEMOLYSIS < 15 (0-50); Potassium 3.6 mmol/L (3.4-5.1); Sodium 141 mmol/L (137-145); Total Protein 7.2 g/dL (6.3-8.2)
[2022-01-31 20:17] LABS: COVID19 -Nasal RAPID Negative (Negative)
== END ==
PROVIDERS: Family Medicine Sleep Medicine; PCP Family Medicine; Referring Provider Orthopaedic Surgery; Visit Provider Orthopaedic Surgery
DX: Z01.812 Encounter for preprocedural laboratory examination (principal); Z20.822 Contact with and (suspected) exposure to COVID-19
CPT/HCPCS: 36415; 80053; 87635; C9803

== ENCOUNTER 2022-02-02 07:59 | Day surgery (SDC) | payer MEDICARE, OTHER, SELFPAY ==
[2022-01-30 13:57] VITALS: BMI 38.0
[2022-02-02] VITALS (16 sets, daily range): BP systolic 118–150; BP diastolic 66–86; PULSE 63–79; RESP 12–20; TEMP 35.9–37.1; O2SAT 93–99; BMI 38.0
--- NOTE | 2022-02-02 07:17 | DI.RAD.S_ITS ---
PROCEDURE: XR SHOULDER LT MIN 2V INDICATIONS: prosthesis placement TECHNIQUE: 2 views of the shoulder were acquired. COMPARISON: [facility], CR, XR SHOULDER LT MIN 2V, 11/28/2021, 19:01. FINDINGS: Bones: Left shoulder arthroplasty. No evidence of hardware failure or loosening. No fractures or dislocations. No suspicious bony lesions. Visualized ribs appear intact. Soft tissues: No suspicious soft tissue calcifications. IMPRESSION: Expected appearance of left shoulder arthroplasty. Dictated by: Rylan Robertson M.D. on 02/02/2022 at 16:01 Approved by: Rylan Robertson M.D. on 02/02/2022 at 16:02
[2022-02-02] MEDS: ACETAMINOPHEN 325 MG TABLET 975 MG PO (08:54)
[2022-02-02] MEDS: LACTATED RINGERS 1,000 ML 42 ML IV (08:55)
[2022-02-02] MEDS: PREGABALIN 75 MG CAPSULE PO (08:55)
[2022-02-02] MEDS: VANCOMYCIN 1,000 MG/200 ML PIGGYBACK 200 MG IV ×2 (09:29→22:44)
--- NOTE | 2022-02-02 09:45 | PM.PREOP ---
Pre-operative Note Interval Note History & Physical reviewed/Exam performed by Physician: Yes Changes to H&P: No
--- NOTE | 2022-02-02 10:15 | PM.HP.1 ---
History of Present Illness History of Present Illness Date Patient Seen: 02/02/22 Time Patient Seen: 09:30 Chief complaint: LT TSA 02/02 *OPB* Narrative: Patient with end-stage arthritis to the left shoulder causing her pain and dysfunction. 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 (2014) Tobacco use Urinary incontinence (2015) Vertigo (~2004) Surgical History Anesthesia H/O colonoscopy with polypectomy History of gastric bypass (2010) History of knee replacement (~01/2017) History of surgery (~10/2021) Hx of bariatric surgery (2010) Hx of LASIK Hx of myomectomy (2009) Hx of surgical procedure (2011) Hx of surgical procedure (~2013) Hx of thumb surgery (2009) S/P removal of thyroid nodule (10/2012) Status post surgery (12/28/08) Family & Social History Family History Mother Diabetes mellitus Hypertension Heart disease Father Homicide Brother Cancer Grandfather Cancer Grandmother No problems noted. Grandfather Accident Grandmother Stroke Social History: household members spouse Prior Living Arrangements House lives independently Yes Safety & Behavioral: Feels Safe in Current Yes Environment Been Physically Hurt or No Threatened By a Person Suicidal Ideation Description None Suicide Plan Description No Plan Tobacco & Substance use: Tobacco type cigarettes Smoking Status Current every day smoker alcohol intake never Substance Use Type marijuana Meds Home Medications and Allergies Home Medications Medication Instructions Recorded Confirmed Type Disabled Parking Permit #1 ea 12/29/19 01/27/22 Rx albuterol sulfate 2.5 mg (3 mL) INHALATION Q4-6H PRN 12/29/19 01/30/22 Rx #90 ml nitroglycerin 0.3 mg sublingual 0.3 mg SL Q5M PRN #10 tab 04/06/20 02/02/22 Rx tablet losartan 100 mg tablet 100 mg PO DAILY #90 tab 06/06/21 02/02/22 Rx albuterol sulfate 90 mcg/actuation 2 puff INHALATION Q6H PRN #25.5 08/25/21 01/30/22 Rx aerosol inhaler gram fluticasone 250 mcg-salmeterol 50 1 inh INHALATION BID #180 each 08/25/21 02/02/22 Rx mcg/dose blistr powdr for inhalation (Advair Diskus) furosemide 20 mg tablet 20 mg PO DAILY PRN #30 tab 09/06/21 02/02/22 Rx pregabalin 150 mg capsule 150 mg PO BID #60 cap 12/09/21 02/02/22 Rx varenicline 0.5 mg tablet 0.5 mg PO .COMPLEX #11 tab 01/17/22 01/30/22 Rx varenicline 1 mg tablet 1 mg PO BID #56 tab 01/17/22 01/30/22 Rx alprazolam 1 mg tablet 1 mg PO BID PRN #60 tab 01/27/22 02/02/22 Rx vortioxetine 10 mg tablet 10 mg PO DAILY #90 tab 01/27/22 02/02/22 Rx oxycodone 5 mg tablet 5 mg PO Q6H PRN #30 tab 01/30/22 02/02/22 Rx tramadol 100 mg capsule 100 mg PO DAILY PRN 01/30/22 01/30/22 History 24h,extended release(25-75) Allergies Allergy/AdvReac Type Severity Reaction Status Date / Time sulfamethoxazole Allergy Severe HIVES AND Verified 08/30/21 11:02 [From SEPTRA] THROAT SWELLING trimethoprim [From SEPTRA] Allergy Severe HIVES AND Verified 08/30/21 11:02 THROAT SWELLING venom-honey bee Allergy Severe ANAPHYLAXIS Verified 08/30/21 11:02 [BEE VENOM (HONEY BEE)] ciprofloxacin [CIPROFLOXACIN] Allergy Intermediate ringing in Verified 08/30/21 11:02 ears, swollen gums, itchy, peanut [PEANUT] Allergy Intermediate ITCHING Verified 08/30/21 11:02 alendronate sodium AdvReac Severe FELT Verified 08/30/21 11:02 [ALENDRONATE SODIUM] TERRIBLE, CHEST PAINS aspirin AdvReac Severe GI Bleed Verified 12/23/21 13:41 ergot alkaloids AdvReac Severe I DON'T Verified 08/30/21 11:02 [ERGOT ALKALOIDS] FEEL RIGHT, FEELING LIKE I'M FALLING BACKWARD ibuprofen AdvReac Severe GI Bleed Verified 12/23/21 13:41 sumatriptan [SUMATRIPTAN] AdvReac Mild FELT Verified 08/30/21 11:02 WEIRD FOR 2 DAYS Exam Vital Signs (past 8 hours): - 02/02/22 08:27 Temperature 98.7 F Pulse Rate 75 Respiratory Rate 16 Blood Pressure 135/85 Pulse Oximetry 96 Oxygen Delivery Method Room Air Narrative Exam Narrative: Decreased range of motion to the shoulder in all planes. Crepitus coming from the glenohumeral joint. Pain with both active and passive range of motion. Assessment & Plan Assessment & Plan narrative: Patient with end-stage arthritic changes to the left shoulder this been unresponsive to conservative treatment. Due to this fact patient is interested in a total shoulder arthroplasty. The risk, benefits, alternatives, possible complications, operative course, and postop outcomes were discussed. Complications including but not limiting to bleeding, infection, fracture, nerve injury, continued pain postoperatively or instability postoperatively were discussed in detail. Medical complications including but not limited to deep venous thrombosis event, anesthesia complications with excessive bleeding, vascular events or cardiac events and other possible complications were discussed in detail. Need for postoperative rehabilitation and anticipated hospital stay and clinical course were discussed in detail. Patient acknowledges understanding and elects to proceed with surgery. Time Spent With Patient Critical Care time: I spent a total of [] minutes of critical care time on this patient's care today; this time is exclusive of procedural time.
[2022-02-02] MEDS: GENTAMICIN 200 MG in SODIUM CHLORIDE 0.9% 100 ML 105 MG IV (10:40)
[2022-02-02] MEDS: LIDOCAINE 1% W/EPI 20 ML INJ (11:03)
--- NOTE | 2022-02-02 11:06 | SUR.OPER ---
Beach chair on padded OR bed. Head supported by head positioner with forehead and chin straps. Non-operative arm secured <90 degrees abduction on padded arm board. Pillow under knees. Safety belt at thigh. Gel pad under heels. Cloth tape over blanket over lower legs. Right leg frog-legged, final positioning approved by surgeon, PA, and anesthesiologist.
--- NOTE | 2022-02-02 11:09 | SUR.OPER ---
Wrist on operative arm (left) appeared to be swollen pre-operatively. Surgeon informed.
--- NOTE | 2022-02-02 11:24 | PM.PROC.1 ---
Procedures Date/Time Date of procedure: 02/02/22 Time of procedure: 10:15 General Procedure description: Ultrasound guided interscalene brachial plexus nerve block for post op pain control after left total shoulder arthroplsty by Dr. Ramírez. Risk and benefits of procedure discussed with patient. ASA monitoring applied to patient. O2 given via nasal cannula. 2 mg Versed and 50 mcg fentanyl given for procedural sedation. Skin site was prepped with chlorhexidine and allowed to fully dry. Sterile gloves, mask, hat and probe cover were used to maintain sterility. 2% lidocaine and 30ga needle was used to make a small skin wheal at needle insertion site. Under ultrasound guidance, a 21ga 50mm Pajunk needle was directed into the interscalene groove (middle/anterior scalenes) near the brachial plexus. Patient reported no parasthesias. After negative aspiration, 20 mL 0.5% ropivicaine and 10mg dexamethasone were injected around brachial plexus. Patient tolerated procedure well.
--- NOTE | 2022-02-02 12:40 | PM.OP.1 ---
Operative Date/Time/Diagnoses Date of procedure: 02/02/22 Time of procedure: 10:30 Pre-op diagnosis: Left shoulder arthritis Post-op diagnosis: same Procedure & Clinicians Procedure: Left total shoulder arthroplasty Same procedure as scheduled: Yes Indications: End-stage arthritis glenohumeral joint Surgeon: Hubert Ramírez Low Pressure Firer: Jameel Bruce Anesthesia Type: General and Peripheral nerve block Operative Notes Findings: Significant arthritic changes to the glenohumeral joint with loss of cartilage of both the humeral head and glenoid. Large osteophytes both inferiorly and anteriorly around the humeral neck and head. Cystic changes to the glenoid. No sign of any rotator cuff tears. No sign of any high-riding humeral head. Closure Type: primary Applied: implant(s) (Size 6 stem small glenoid and a 50 x 19 humeral head) Estimated Blood Loss (mL): 100 Procedure in detail: On date of service, Patient was met in the holding area. The operative site was signed and witnessed by the OR staff. The surgeries once again discussed with the patient and any remaining questions they had were answered fully. Patient was taken back to the operating theater and placed on the operating table in a supine position. Great care was taken to ensure that all bony prominences were properly padded. Patient was then placed into the beach chair position. The head and neck were properly positioned and secured. A timeout was performed verifying patient's name, procedure, and the operative site. The upper extremity was then prepped and draped in the normal sterile fashion. Previously, the bony anatomy and incision were marked out as well as injected with Marcaine with epinephrine. A deltopectoral approach was performed. 10 blade was used to incise the skin and fascial tissue. A deep knife was used to continue sharp dissection until the cephalic vein was visualized. The cephalic vein was dissected free allowing us to expose the deltopectoral interval. This interval was then developed. A Gill elevator was used to free up the deltoid of any scarring both superficially as well as deeply. The vein and the deltoid were taken laterally while the pectoralis was taken medially. This gave us good visualization of the strap muscles. The clavipectoral fascia was removed and the strap muscles were then retracted medially with the pectoralis. This gave us stabilization of the subscapularis. The circumflex vessels were ligated and the subscapularis was sharply excised off the lesser tuberosity and then tagged. Once the subscapularis was released we're able to dislocate the shoulder. Patient had end-stage arthritic changes to the humeral head as well as the glenoid with large osteophytes anterior inferiorly as well as posteriorly. A Ronger was then used to remove the osteophytes. See findings above for descriptions of the humeral head and glenoid. Next, cutting guide was placed and a saw was used to remove the humeral head. Once the head was removed it was templated. A 50 x 19 head gave us the best coverage. A starting awl was then used to find the canal and then the humerus was reamed and broached. Trial stem was placed and a variety of heads were trialed. A size 6 stem gave us the best fit. Protector placed for the osteotomy was then placed and and we turned our attention back to the subscapularis as well as the glenoid. The subscapularis was freed up and a 360? fashion. The degenerative anterior and inferior capsular tissue was removed. This was followed by removing the degenerative labral tissue from around the glenoid as well as the biceps insertion. Retractors were used to protect the axillary nerve while we remove the degenerative capsular and labral tissue. This gave us good visualization of the glenoid. Glenoid trials were used until we found the appropriate fit and curvature. A large glenoid provided the best fit. The center hole was drilled followed by reaming of the glenoid. The wound was copiously irrigated after reaming. Next the pegs were drilled and a trial glenoid was impacted into place. Once we were satisfied with the preparation of the glenoid, the final component was cemented into place. This was followed by impaction. We Return to our attention back to the humerus. The protector plate was removed and heads were trialed once again until we found the appropriate fit. Once again the 50 x 19 head provided the best coverage as well as stability to the glenohumeral joint. Trials were removed and bone tunnels were made into the humeral neck. #2 FiberWire were passed through the bone tunnels for eventual subscapularis repair. The final stem and head were impacted into place and the shoulder was reduced. It was taken through range of motion and was felt to be stable in both posterior translation as well as external and internal rotation with abduction. The subscapularis was repaired back to the lesser tuberosity through the bone tunnels. This was then reinforced with soft tissue repair. Part of the rotator interval was then closed. A drain was placed and the rest of the wound was closed in a layered fashion. The shoulder was then cleaned dried and dressed and the patient was taken to the PACU in stable condition. Patient will follow our postoperative protocol for total shoulder arthroplasty. Complications: none Post-operative Condition: stable Disposition: Acute Care Plan for aftercare: Patient will follow our postoperative protocol for total shoulder arthroplasty
[2022-02-02] MEDS: LACTATED RINGERS 1,000 ML 125 ML IV (14:19)
[2022-02-02] MEDS: ALPRAZolam 0.5 MG TABLET 1 MG PO ×2 (14:19→22:46)
--- NOTE | 2022-02-02 15:35 | PT.IIE ---
Current Diagnoses Primary osteoarthritis, left shoulder (02/02/22) Surgery Performed Operation Date: 02/02/22 10:00 Actual Procedures p Total Shoulder Arthroplasty(Left) - Hubert Ramírez MD Surgical History (Last Reviewed 02/02/22 @ 10:15 by Hubert Ramírez MD) Anesthesia History of gastric bypass (2010) Status post surgery (12/28/08) Medical History (Last Reviewed 02/02/22 @ 10:15 by Hubert Ramírez MD) Allergic rhinitis (1957) Anxiety (~1975) Asthma Chickenpox (1959) Depression (~1975) Deviated septum Essential hypertension Fractures (2015) Hearing loss (2014) History of musculoskeletal cancer (2011) Iron deficiency anemia Measles (1960) Mumps (1968) Numbness Osteoarthritis (1977) Osteopenia (2009) Osteoporosis (~2006) Panic attack PTSD (post-traumatic stress disorder) (~1975) Sleep apnea (Unknown) 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 (2014) Tobacco use Urinary incontinence (2015) Vertigo (~2004) Physical Therapy Inpatient Evaluation/Re-Eval M1 PT/OT-IP Prior Functional Status Start: 02/02/22 17:08 Freq: NEEDED Status: Active Protocol: Document 02/02/22 15:35 AB (Rec: 02/02/22 17:19 AB [id number]) Medical Review Prior Functional Status Medical History Reviewed Yes Communication able to make needs known Mobility and Gait pt stated that she is independent with all mobilities and ambulation without AD Social History Household Members spouse Living Arrangements House Number of Floors (Floors) One Floor Number of Stairs To Enter/Railing? 2 steps without rails to enter the house Home Environment Tub/Shower Home Equipment Straight Cane,Shower Seat without Backrest,Hand Held Shower,Grab Bars In Shower M2 PT-IP Current Condition Start: 02/02/22 17:08 Freq: NEEDED Status: Active Protocol: Document 02/02/22 15:35 AB (Rec: 02/02/22 17:19 AB [id number]) Physical Therapy Current Condition Current Condition Evaluation Date 02/02/22 Treatment Diagnosis s/p L TSA; difficulty in walking Onset Date 02/02/22 M3 PT-IP Subjective Start: 02/02/22 17:08 Freq: NEEDED Status: Active Protocol: Document 02/02/22 15:35 AB (Rec: 02/02/22 17:19 [id number]) Subjective Physical Therapy Visit Type Type Initial Evaluation Visit Start Time 15:35 Visit Stop Time 16:30 Total Visit Minutes 55 Number of METAL TANK ERECTOR Visits 0 Physical Therapy Visit Comments Patient Comments agreeable to do PT Therapy Pain Assessment Pain When Pain Assessed At Rest Pain Present Pain Present Pain Reported Location Left Shoulder Intensity 3 Scale Used Numeric (0 - 10) Pain Management Techniques Distraction,Modification of Treatment,Re-positioning, Timing of Activity with Medications M4 PT-IP Mobility and Gait Start: 02/02/22 17:08 Freq: NEEDED Status: Active Protocol: Document 02/02/22 15:35 AB (Rec: 02/02/22 17:19 [id number]) PT-Bed Mobility Assessment Supine to Sit Supine to Sit Standby Assistance Sit to Supine Sit to Supine Standby Assistance PT-Transfer Assessment Sit to and From Stand Sit to and from Stand Contact Guard Assistance,1 Person Assistance Equipment Transfer Assistive Device None,Gait Belt Orthotic/Prosthetic Devices or Brace: Yes Transfers Transfer Destination Toilet Transfer Technique ambulated Transfer Ability Level of Assist Contact Guard Assistance,1 Person Assistance,Use of Upper Extremities Comments Mobility Comments pt supine in bed with spouse in room. educated pt and spouse regarding shoulder precautions. pt completed supine to sit SBA. able to sit on EOB SBA. educated spouse on sling management. pt also educated on elbow exercises, wrist/hand exercises but due to pt not having motor control back on LUE, PROM comopleted instead to demonstrate exercises. pendulum demonstrated but pt unable to complete at this time due to no motor control of LUE. spouse was able to don/doff sling. pt completed sit to stand CGA and requested to use the toilet and ambulated to the toilet without AD CGA. unsteady gait but without LOB. completed toileting with spouse assisting. pt agreed to do stairs. ambulated out in the hallway ~ 30 ft without AD CGA. completed up/down platform step x 2 sets with spouse provided [employer] SAL[employer] UNIT ADVISOR as directed. pt ambulated back to the room and to the bed. SBA sit to supine. positioned pt in bed. call light and table placed within reach. educated spouse on how to use safety belt and able to counter demonstrate. Gait Assessment Gait Gait Assistance Required: Contact Guard Assist Distance (Feet) 30 Able to Maintain Weight Bearing Status Yes During Gait Assistive Devices Assistive Device None,Gait Belt Orthotic/Prosthetic Devices or Brace: Yes Gait Deviations General Gait Pattern Antalgic,Decreased Stride Length,Decreased Feet Clearance Factors Limiting Gait Function Factors Limiting Gait Function Decreased Activity Tolerance, Decreased Strength,Limited Range of Motion,Pain,Poor Balance,Poor Safety Awareness Stair Climbing Assessment Evaluation Level of Assist On Stairs Moderate Assistance,1 Person Assistance Devices Stair Climbing Assistive Devices None Technique/Endurance Stair Climbing Direction Ascend and Descend Stair Climbing Technique Step to Step Number of Steps Climbed 1 Query Text: Stair Climbing Set # Repetitions (reps) 2 Comments Stair Climbing Comments pls refer to mobility section for details PT-Balance Assessment Sitting Balance and Reactions Static Sitting Balance Ability Good Dynamic Sitting Balance Ability Good Standing Balance and Reactions Static Standing Balance Ability Good Dynamic Standing Balance Ability Fair Device Used without AD M5 PT-IP Objective Assessments Start: 02/02/22 17:08 Freq: NEEDED Status: Active Protocol: Document 02/02/22 15:35 AB (Rec: 02/02/22 17: [id number]) Orientation Orientation/Cognition Level of Alertness Alert Orientation Name,Age,Birthday,Month,Date, Year,Day of Week,Place, Situation Language Function Ability No Deficits Noted Safety Awareness Decreased Safety Awareness Memory Description No Deficits Noted Gross Range of Motion Lower Extremity ROM Assessment Within Functional Limits Strength Lower Extremity Strength Assessment Within Functional Limits Sensation Assessment Sensation Gross Sensation Left UE Impaired Sensation Description Numbness M6 PT-IP Treatment Start: 02/02/22 17:08 Freq: NEEDED Status: Active Protocol: Document 02/02/22 15:35 AB (Rec: 02/02/22 17:19 [id number]) Physical Therapy Treatment Exercises Exercises Elbow Flexion/Extension,Wrist ROM,Hand ROM Education Education Provided Precautions,Weight Bearing Status,Post-Op Packet,Safety Brace Education [place],Patient, Caregiver M7 PT-IP Assessment and Plan Start: 02/02/22 17:08 Freq: NEEDED Status: Active Protocol: Document 02/02/22 15:35 AB (Rec: 02/02/22 17:19 [id number]) PT Summary Assessment and Plan Potential Rehabilitation Potential Good Status of Condition at Evaluation Evolving Summary Impairments Pain,ROM,Strength,Balance, Coordination,Sensation,Tone, Cognition,Bed Mobility, Transfers,Gait,Activity Tolerance Assessment Summary pt requiring CGA with ambulation without AD and mod A for up/down stairs but spouse was able to assist. pt plans to go home and spouse to assist her. pt may go home when medically stable. Goals Bed Mobility Goal Independent Transfer Goal Independent Gait Goal Independent Gait Distance 150 Other Goals up/down 2 steps SBA Days to Meet Goals 3 Frequency of Treatment Frequency Of Treatment Twice a Day Treatment Plan Physical Therapy Treatment Plan Bed Mobility Training,Transfer Training,Gait Training, Therapeutic Exercise,Balance Retraining,Post Op Education, Discharge Planning,Hot or Cold Pack,Neuromuscular Re-ed, Coordination Retraining,Manual Therapy Precautions Shoulder Precautions Sling,PROM,Internal Rotation to Body,No External Rotation, No Abduction,Forward Flexion to 90 degrees,Pendulums Weight Bearing Status Weight Bearing Status Non-Weight Bearing Allowed Weight Bearing Amount (enter % LUE NWB or #) (%) Recommendations To Nursing Amount of Assist Needed 1 Person Assist Discharge Recommendations PT Discharge Recommendations Home with Assistance, Outpatient PT Transportation Needs at Discharge Private Vehicle
[2022-02-02] MEDS: OXYCODONE IR 10 MG TABLET PO ×3 (15:42→22:45)
[2022-02-02] MEDS: DOCUSATE 100 MG CAPSULE PO (22:44)
[2022-02-02] MEDS: PREGABALIN 75 MG CAPSULE 150 MG PO (22:44)
[2022-02-02] MEDS: MAGNESIUM HYDROXIDE 30 ML UDC PO (22:44)
[2022-02-02] MEDS: ZOLPIDEM 5 MG TABLET PO (22:46)
--- NOTE | 2022-02-02 22:47 | RT ---
Pt stated that she uses Advair at home and would prefer to use that instead of nebulizer pulmicort. She also mentioned she only takes albuterol as needed only. Pt refused scheduled nebulizer tx twice now. Tx were canceled and acknowledged that she will call if she needs a tx. No SOB reported at this time. RT will continue to check on Pt.
[2022-02-03 00:37] VITALS: BP 154/83; PULSE 75; RESP 19; TEMP 36.3; O2SAT 96
[2022-02-03] MEDS: LACTATED RINGERS 1,000 ML 125 ML IV (02:31)
[2022-02-03] MEDS: OXYCODONE IR 10 MG TABLET PO ×3 (02:35→12:29)
[2022-02-03 03:02] VITALS: BP 126/72; PULSE 66; RESP 17; TEMP 36.2; O2SAT 94
[2022-02-03 05:56] LABS: Hematocrit 32.4 % (36-46); Hemoglobin 11.2 g/dL (12.0-16.0); Mean Corpuscular HGB Conc 34.4 % (30-36); Mean Corpuscular Hemoglobin 29.9 PG (26-34); Platelet Count 230 X10^3/uL (150-400); Red Blood Cell Count 3.73 X10^6/uL (4.0-5.2); Red Cell Distribution Width 13.3 % (11.6-14.8); White Blood Cell Count 9.5 X10^3/uL (4.5-11.0)
[2022-02-03 08:00] VITALS: BP 130/71; RESP 18; TEMP 36.2; O2SAT 96
[2022-02-03 08:45] VITALS: BP 130/71; PULSE 81
[2022-02-03] MEDS: LOSARTAN 50 MG TABLET 100 MG PO (08:45)
[2022-02-03] MEDS: DOCUSATE 100 MG CAPSULE PO (08:45)
[2022-02-03] MEDS: PREGABALIN 75 MG CAPSULE 150 MG PO (08:45)
[2022-02-03 09:32] VITALS: PULSE 77; RESP 16; O2SAT 95
--- NOTE | 2022-02-03 10:38 | PM.DS.1 ---
History of Present Illness History of Present Illness Date Patient Seen: 02/03/22 Time Patient Seen: 10:38 Chief complaint: Left shoulder pain s/p left TSA Narrative: Patient is complaining of moderate left shoulder pain this morning. 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 Patient is overall feeling well and would like to be discharged home. Her is at bedside. Discharge Providers Provider Discharge Date: 02/03/22 Primary care physician: Lauren Talavera DO Consults: 02/02/22 08:51 Consult to Respiratory Therapy Evaluate & Treat Comment: Physician Instructions: Evaluate and treat 02/02/22 12:38 Consult to Discharge Planning Routine Comment: Consult to Physical Therapy Evaluate & Treat Comment: Physician Instructions: Evaluate and Treat Consult to Respiratory Therapy Evaluate & Treat Comment: Physician Instructions: Evaluate and treat Discharge provider: Donita Mallory PA-C Summary Hospital Course Discharge Diagnosis: Left shoulder osteoarthritis Hospital Course: Operative Date/Time/Diagnoses Date of procedure: 02/02/22 Time of procedure: 10:30 Procedure & Clinicians Procedure: Left total shoulder arthroplasty Same procedure as scheduled: Yes Indications: End-stage arthritis glenohumeral joint Surgeon: Hubert Ramírez Thread Clipper: Jameel Bruce Anesthesia Type: General and Peripheral nerve block Operative Notes Findings: Significant arthritic changes to the glenohumeral joint with loss of cartilage of both the humeral head and glenoid.? Large osteophytes both inferiorly and anteriorly around the humeral neck and head.? Cystic changes to the glenoid.? No sign of any rotator cuff tears.? No sign of any high-riding humeral head. Closure Type: primary Applied: implant(s) (Size 6 stem small glenoid and a 50 x 19 humeral head) Estimated Blood Loss (mL): 100 Status at Discharge Cognitive/behavioral status at discharge: oriented Overall status at discharge: patient is progressing back to baseline Exam Vital Signs (past 8 hours): - 02/03/22 03:02 02/03/22 08:00 02/03/22 08:45 Temperature 97.1 F L 97.2 F L Pulse Rate 66 81 Respiratory Rate 17 18 Blood Pressure 126/72 130/71 130/71 Pulse Oximetry 94 96 02/03/22 09:32 Temperature Pulse Rate 77 Respiratory Rate 16 Blood Pressure Pulse Oximetry 95 Oxygen Delivery Method Room Air Oxygen Flow Rate 0 Narrative Exam Narrative: Pleasant 59-year-old female, resting comfortably in bed, no acute distress. is at bedside. Dressing is clean, dry, intact. The drain was removed an occlusive dressing was placed today. Bilateral upper extremity: Safemaker strength is 5/5, sensation is mildly decreased in her left 2nd finger, otherwise intact throughout. The patient notes this is her baseline. She also has significant atrophy in deformity of her left hand, due to prior surgery. Objective Labs Result Diagrams: 02/03/22 05:15 Labs: Laboratory Results - last 24 hr 02/03/22 05:15 WBC 9.5 RBC 3.73 L Hgb 11.2 L Hct 32.4 L MCV 87.0 MCH 29.9 MCHC 34.4 RDW 13.3 Plt Count 230 PFSH Medical History Allergic rhinitis (1957) Anxiety (~1975) Asthma Chickenpox (1959) Depression (~1975) Deviated septum Essential hypertension Fractures (2015) Hearing loss (2014) History of musculoskeletal cancer (2011) Iron deficiency anemia Measles (1960) Mumps (1968) Numbness Osteoarthritis (1977) Osteopenia (2009) Osteoporosis (~2006) Panic attack PTSD (post-traumatic stress disorder) (~1975) Sleep apnea (Unknown) 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 (2014) Tobacco use Urinary incontinence (2015) Vertigo (~2004) Surgical History Anesthesia H/O colonoscopy with polypectomy History of gastric bypass (2010) History of knee replacement (~01/2017) History of surgery (~10/2021) Hx of bariatric surgery (2010) Hx of LASIK Hx of myomectomy (2009) Hx of surgical procedure (2011) Hx of surgical procedure (~2013) Hx of thumb surgery (2009) S/P removal of thyroid nodule (10/2012) Status post surgery (12/28/08) Family History Mother Diabetes mellitus Hypertension Heart disease Father Homicide Brother Cancer Grandfather Cancer Grandmother No problems noted. Grandfather Accident Grandmother Stroke Social History marital status: number of children: 2 household members: spouse lives independently: Yes education level: other occupational status: other Smoking Status: Current every day smoker alcohol intake: never substance use type: marijuana Discharge Assessment & Plan Assessment and Plan Assessment: Stable status post left total shoulder arthroplasty Plan of Treatment: -mobilize with PT. Continue with the sling -the drain was pulled today -continue with multimodal pain management -DC home today once cleared by PT Discharge Plan Discharge Plan Patient Disposition: Home Discharge orders & Medications Discharge Orders: Discharge (Order); Ordered 02/03/22 Ordered By: Donita Mallory Prescriptions: New oxycodone 10 mg Tablet 10 mg PO Q3HR PRN (Reason: Moderate to severe postop pain) Qty: 42 0RF acetaminophen 500 mg capsule 500 mg PO QID PRN (Reason: fever or pain) Qty: 90 0RF docusate sodium 100 mg Capsule 100 mg PO BID PRN (Reason: Constipation from narcotic pain meds) Qty: 30 0RF Continued losartan 100 mg tablet 100 mg PO DAILY Qty: 90 3RF furosemide 20 mg tablet 20 mg PO DAILY PRN (Reason: edema) Qty: 30 0RF pregabalin 150 mg capsule 150 mg PO BID Qty: 60 2RF Rx Instructions: 60 tablets must last 30 days albuterol sulfate 2.5 mg /3 mL (0.083 %) solution for nebulization 2.5 mg INHALATION Q4-6H PRN (Reason: shortness of breath or wheezing) Qty: 90 0RF nitroglycerin 0.3 mg tablet, sublingual 0.3 mg SL Q5M PRN (Reason: chest pain) Qty: 10 1RF Rx Instructions: do not exceed 3 doses per episode varenicline 0.5 mg tablet 0.5 mg PO .COMPLEX Qty: 11 0RF Label Comments: Pt has not started yet Rx Instructions: 0.5 mg PO; Days 1-3: 0.5mg PO daily; Days 4-7: 0.5mg PO BID; then start 1mg tabs varenicline 1 mg tablet 1 mg PO BID Qty: 56 2RF Label Comments: Pt has not started yet Rx Instructions: Start after 1 week on 0.5mg tabs. Continue for 12 weeks total alprazolam 1 mg tablet 1 mg PO BID PRN (Reason: anxiety) Qty: 60 2RF vortioxetine 10 mg tablet 10 mg PO DAILY Qty: 90 1RF (DME) Disabled Parking Permit See Rx Instructions .Route .MEDSUPPLY Qty: 1 0RF Rx Instructions: I find this patient to be medically disabled and qualified for Disabled Parking as indicated, and signed, on the accompanying Disabled Parking Application for Individuals ; fluticasone propion-salmeterol [Advair Diskus] 250-50 mcg/dose blister with device 1 inh INHALATION BID Qty: 180 3RF albuterol sulfate 90 mcg/actuation HFA aerosol inhaler 2 puff INHALATION Q6H PRN (Reason: shortness of breath or wheezing) Qty: 25.5 3RF tramadol 100 mg capsule,ER biphase 24 hr 25-75 100 mg PO DAILY PRN (Reason: pain) 0RF Discontinued oxycodone 5 mg tablet 5 mg PO Q6H PRN (Reason: pain) Qty: 30 0RF Follow up/Referrals: Lauren Talavera DO [Primary Care Provider] - Hubert Ramírez MD [Physician] - (10-14 days for postoperative visit) Diet/Activity/Treatments Diet: Diet as Tolerated Other treatments: Medications: -OTC Tylenol 500 mg 1 tablet every 4 hours as needed for pain/fever. Max 6 tablets per day. -Oxycodone 5 mg take 1-2 tablets every 4 hours as needed for moderate-severe pain (narcotic pain medication). -As needed medications: -Ducolax and /or MiraLax as needed for constipation from narcotic pain medications. -Pepcid AC as needed for stomach upset (usually from aspirin or ibuprofen). Dressing/Wound care: -Keep Aquacell dressing in place until postoperative follow-up office visit. -Okay to shower. Keep wound out of direct water stream. No soaking or submerging until all the scabs fall off (approximately 6 weeks). -Please call the office if dressing becomes wet, soiled, or saturated. Activities: -Continue with sling. -Continue with home exercises as directed by your physical therapist. -Ice your incision as needed for pain/inflammation/swelling. Protect your skin with a folded pillowcase. -Incentive Spirometer (breathing device from hospital): 5-10xs every hour while awake for the first 1-2 weeks. Follow-up: -Follow-up with your surgeon or PA in the office in 10-14 days after surgery. -Follow-up with your surgeon 6 weeks postoperatively. Call the office if you have chest pain, shortness of breath, significant swelling that will not resolve with elevating, fever over 101?, significantly worsening pain. [facility]: [phone] Skin/Wound/Dressing Care Report to your healthcare provider any signs of infection, such as:: chills, fever, night sweats, unusual drainage and unusual redness Visit Report/Discharge Packet Instructions: DI for Shoulder Replacement Stand Alone Forms: Surgery Discharge Discharge Data Primary Care Provider: Lauren Talavera Attending Provider: Hubert Ramírez VTE Deep Vein Thrombosis/Pulmonary Embolism Present on Admission: No
--- NOTE | 2022-02-03 10:55 | PT-IP ANOTE ---
Attempted to see pt at 10:55, pt refused PT stating she had no further needs and was preparing to d/c home. Pts states he feels comfortable to assist pt at home.
--- NOTE | 2022-02-03 11:08 | CM.DANOTE ---
DCP: Case received, EMR reviewed and met with patient. Introduced self and role. Was able to obtain information regarding patient's baseline activity level prior to her surgery. DCP assessment completed with information currently available. Patient is a 67 year old female who admitted yesterday morning to the care of the orthopedic team. PCP: Dr. Talavera. Payer: confirmed: Medicare/ for Life Patient came to the hospital via private vehicle for a surgical procedure. Patient had left shoulder arthroplasty. Patient has history of osteoarthritis. Met with patient in her room. Patient is pleasant, alert and oriented. She resides in [place] with spouse, Gianfranco. She has a cane for use if needed, is independent at baseline. Confirmed, spouse will be able to assist when she goes home. P: DCP to continue to follow. Plan is home when deemed medically stable. Kenia Bills RN/Field Marketing Specialist Discharge Planning/Care Management CM Discharge Assessment Start: 02/03/22 11:06 Freq: Status: Active Protocol: Document 02/03/22 11:06 (Rec: 02/03/22 11:08 [id number]) Discharge Planning Assessment Assigned Portfolio Assistant Kenia Bills RN/Field Marketing Specialist Advance Directives? Yes Advance Directives on File No History Provided By Patient,Medical Record Prior Living Arrangements House Household Members spouse Type of transporation used prior to Drives own vehicle admit Independent with ADL's Yes Is patient alert and oriented? Yes Caregiver for Another No DME Already Rented / Owned Cane Patient/Family Preference OP PT Therapy,OP OT Therapy Barriers to Discharge No Comment Patient has good support at home. Discharge Plan Home Transportation Arrangement Spouse Referrals Initiated None needed Whiteboard Updated in Patient Room with Yes name and ext. # of Portfolio Assistant Review Status In Process Next Review Type Continued Stay Review Pre-Anesthesia Assessment Start: 01/30/22 13:54 Freq: Status: Complete Protocol: Document 01/30/22 13:57 CAB (Rec: 01/30/22 14:35 CAB [id number]) Pre-Anesthesia Assessment Preferred Name Colby Patient Information Reviewed Via Phone Assessment Assessment Completed With Patient Diagnostic Results CBC Comment Outside labs/ECG scanned, COVID-needs to schedule Primary Care Provider Lauren Talavera Seen Specialist in Last 12 Months Yes Specialist Seen Orthopedist,Other Primary Language Niuean Preferred Language Niuean Post Splitter Required No Height 5 ft 0.75 in Weight 200 lb Body Mass Index (BMI) 38.0 Hearing Ability Hard of Hearing,Use of Hearing Aid Visual Assist Glasses Dentition Type Dental Implants Barriers to Learning Auditory,Visual Hx Anesthesia Reactions Yes: PONV Hx Family Anesthesia Reaction No Hx Malignant Hyperthermia No Hx Blood Transfusions No Anesthesia Review Requested No alcohol intake never Smoking Status Current every day smoker Tobacco type cigarettes how long ago did patient quit smoking Attempting to quit, will start Chantix after surgery Substance Use Type marijuana Comment Edible form Pain Present Pain Reported Musculoskeletal Symptoms Abnormal Gait,Joint Pain,Joint Stiffness,Limited Range of Motion History of Falling (Recent or History of Yes ) Patient is completely paralyzed or No completely immobile Prosthesis or Orthotic Device Cane Mental Status Oriented to own ability Is patient on oxygen? No Does patient have JONES/SOB No Hx Sleep Apnea No: Pt denies any history of Sleep Apnea CPAP/BIPAP use not prescribed Currently Taking a Beta [place] No Can You Climb a Flight of Stairs Without Yes SOB Hx Chest Pain No Hx SOB No Hx Syncope or Dizziness No Anti-Coagulant Therapy No Has a Hoop Coiler No Cardiac Testing No Hx Pacemaker/ICD No Pacemaker Rep Required? No Diet Type At Home Regular dysphagia Yes: Trouble swallowing chicken Bladder Pattern Urgency Urinary Catheter Present No Hx Urinary Self Catheterization No Diabetes No Patient No Lactating No Presence of External or Internal Medical Yes: titanium right knee; Devices dental implants; cadaver bone lt thumb, hearing aids Have you had any close contact with No someone diagnosed with COVID-19? Received a COVID vaccine? Yes: Needs 2 booster Marital Status Lives With spouse Prior Living Arrangements House Number of Floors (Floors) One Floor Support System Family,Spouse Does the Patient Have Assistance After Yes Surgery Patient Discharge Plan Description Return Home Comment Pt not advised on length of stay per surgeon Feels Safe in Current Environment Yes Been Physically Hurt or Threatened By a No Person in Current Environment Do you have thoughts of harming yourself None or others? Are you currently considering suicide? No Do you have a plan to hurt yourself or No Plan others? Do You Have Any Spiritual Beliefs That No May Affect Your HC Choices? Do You Have Any Cultural Practices That No May Affect Your HC Choices? Comment Mosque Who Can We Speak to About Patient's Care Family, friends Identifying Code for Release of Patient Declines to issue Information Health Care Proxy/Next of Kin Shabana Mallory (Ex-daughter in-law) Health Care Proxy or [phone] Emergency Contact Name Clement () Emergency Contact Advance Directives? Yes Requested Patient Bring Advanced Yes Directives DOS Power of Clam Treader Yes PAC Instructions Do not shave/clip surgical site,Medications to take/avoid ,Nasal antibiotic,No ETOH/ petroleum product on skin DOS, NPO,Post-op transportation,Pre -surgical wash,Sensory aids, Sturdy shoes/comfortable clothes,Do not bring valuables and remove jewelry
--- NOTE | 2022-02-03 12:48 | PC.NURSE ---
Pt AxOx4, independent and cooperative. VSS, c/o pain and recieved PRN Oxy twice with good effect. VSS, pt cleared with PT and voiding, eating well.. Pt is ready d/c home. Her is here to pick her up. D/c instructions given including information on Oxycodone. No other changes.
== END 2022-02-03 13:34 | disposition home or self-care (01) ==
LOC: OR 08:00 → AC 08:03
PROVIDERS: PCP Family Medicine; Referring Provider Orthopaedic Surgery; Visit Provider Orthopaedic Surgery
PROC: (CPT 23472; principal; 2022-02-02 10:00)
DX: M19.012 Primary osteoarthritis, left shoulder (principal); F41.9 Anxiety disorder, unspecified; J45.909 Unspecified asthma, uncomplicated; G47.33 Obstructive sleep apnea (adult) (pediatric); F43.10 Post-traumatic stress disorder, unspecified
CPT/HCPCS: 23472; 36415; 73030; 85027; 97162; 97530; C1776; J1100; J2250; J2405; J2704; J3010

== ENCOUNTER → 2022-06-19 13:02 | Outpatient (CLI) | payer MEDICARE, OTHER, SELFPAY ==
[2022-02-02 13:59] VITALS: BMI 38.0
--- NOTE | 2022-06-19 | DI.MG.S_ITS ---
BILATERAL DIGITAL SCREENING MAMMOGRAM 3D/2D WITH CAD: 06/19/2022 CLINICAL: Routine screening. Comparison is made to exams dated: 01/01/2021 mammogram, 10/29/2019 mammogram, 10/22/2017 mammogram - [facility], and [facility] Both breasts are heterogeneously dense, which may obscure small masses (category c / 51-75% glandular tissue). Current study was also evaluated with a Computer Aided Detection (CAD) system. There are benign calcifications in both breasts. There also are benign vascular calcifications in both breasts. No significant masses, calcifications, or other findings are seen in either breast. There has been no significant interval change. IMPRESSION: BENIGN There is no mammographic evidence of malignancy. A 1 year screening mammogram is recommended. Based on the Tyrer Cuzick model (a risk assessment model) the patient's lifetime risk is 6.4% and her 10 year risk is 3.5%. According to the ACR, ACS, and NCCN guidelines, an annual breast MRI exam along with mammogram is recommended if the patient's lifetime risk is 20% or greater. This exam was interpreted at Station ID: [id number]. NOTE: For mammograms, a report in lay terms will be sent to the patient. Approximately 15% of breast malignancies will not be visualized mammographically. In the management of a palpable breast mass, a negative mammogram must not discourage biopsy of a clinically suspicious lesion. Electronically Signed By: Collin mays/lacy:06/19/2022 13:36:20 letter sent: Normal Exam ACR BI-RADS Category 2: Benign Finding(s) 3342F
--- NOTE | 2022-06-19 14:21 | DI.RAD.S_ITS ---
PROCEDURE: XR FOOT RT MIN 3V INDICATIONS: Right foot pain TECHNIQUE: 3 views of the foot were acquired. COMPARISON: None. FINDINGS: Bones: Moderate scattered degenerative changes, particularly at the 1st MTP. Third toe PIP hardware. Possible nondisplaced fracture, age indeterminate, to the 5th metatarsal base. No acute fracture or dislocation. Calcaneal enthesopathy. Soft tissues: No tibiotalar joint effusion. Achilles tendon appears normal. IMPRESSION: Possible nondisplaced fracture to the 5th metatarsal base, correlate with point tenderness, age indeterminate. Scattered degenerative changes and other findings as described above. If there is high concern for further derangement, consider MRI evaluation. Dictated by: Nicholas Santillan M.D. on 06/19/2022 at 16:10 Approved by: Nicholas Santillan M.D. on 06/19/2022 at 16:12
--- NOTE | 2022-06-19 14:21 | DI.RAD.S_ITS ---
PROCEDURE: XR SHOULDER LT MIN 2V INDICATIONS: Left shoulder pain TECHNIQUE: 3 views of the shoulder were acquired. COMPARISON: [facility], , XR SHOULDER LT MIN 2V, 02/02/2022, 13:01. FINDINGS: Changes of left shoulder arthroplasty. Interval superior left humeral subluxation. No fracture. IMPRESSION: Moderate superior subluxation of the left humeral prosthesis. Dictated by: Murali Benitez M.D. on 06/20/2022 at 10:00 Approved by: Murali Benitez M.D. on 06/20/2022 at 10:05
== END ==
PROVIDERS: PCP Family Medicine; Referring Provider Family Medicine; Visit Provider Family Medicine
DX: Z12.31 Encounter for screening mammogram for malignant neoplasm of breast (principal); T84.028A Dislocation of other internal joint prosthesis, initial encounter; M79.671 Pain in right foot; M25.512 Pain in left shoulder; M77.31 Calcaneal spur, right foot; W19.XXXA Unspecified fall, initial encounter; Z96.612 Presence of left artificial shoulder joint
CPT/HCPCS: 73030; 73630; 77063; 77067

== ENCOUNTER → 2022-06-22 12:05 | Outpatient (CLI) | payer MEDICARE, OTHER, SELFPAY ==
[2022-02-02 13:59] VITALS: BMI 38.0
--- NOTE | 2022-06-22 12:07 | DI.RAD.S_ITS ---
PROCEDURE: XR RIBS LT MIN 3V W CXR1V INDICATIONS: fall, ongoing pain TECHNIQUE: 2 views of the left ribs were acquired, along with a single view chest. COMPARISON: None. FINDINGS: Surgical changes and devices: Postsurgical changes from left shoulder arthroplasty. Right upper quadrant cholecystectomy clips. Bones and chest wall: No acute displaced rib fracture. No suspicious bony lesions. Overlying soft tissues appear unremarkable. Lungs and pleura: No pleural effusions or pneumothorax. Lungs appear clear. Mediastinum: Mediastinal contours appear normal. Heart size is normal. Aortic atherosclerotic calcifications. IMPRESSION: No acute displaced rib fracture. No pneumothorax. Dictated by: Vincent Landaverde M.D. on 06/22/2022 at 20:04 Approved by: Vincent Landaverde M.D. on 06/22/2022 at 20:06
--- NOTE | 2022-06-22 12:07 | DI.RAD.S_ITS ---
PROCEDURE: XR TIBIA FIBULA LT 2V INDICATIONS: fall, left rib pain TECHNIQUE: 2 views of the tibia and fibula were acquired. COMPARISON: [facility], CR, XR FOOT 3 VIEWS WEIGHT BEARING RIGHT, 03/03/2021, 12:18. FINDINGS: Bones: No fractures or dislocations. No suspicious bony lesions. Soft tissues: No suspicious soft tissue calcifications or masses. IMPRESSION: No acute osseous abnormality. If symptoms persist, follow-up radiographs and/or CT may be helpful for further evaluation. Dictated by: Vincent Arevalo M.D. on 06/22/2022 at 16:42 Approved by: Vincent Arevalo M.D. on 06/22/2022 at 16:45
== END ==
PROVIDERS: PCP Family Medicine; Referring Provider Family Medicine; Visit Provider Family Medicine
DX: M89.8X6 Other specified disorders of bone, lower leg (principal); R07.81 Pleurodynia
CPT/HCPCS: 71101; 73590

== ENCOUNTER → 2022-07-13 12:56 | Outpatient (CLI) | payer MEDICARE, OTHER, SELFPAY ==
[2022-02-02 13:59] VITALS: BMI 38.0
--- NOTE | 2022-07-13 12:59 | DI.CT.S_ITS ---
PROCEDURE: CT SHOULDER LEFT WITH CON INDICATIONS: Pain in left shoulder TECHNIQUE: After the intra-articular administration of 12 mL of dilute non-ionic contrast, 1-1.5 mm thick sections acquired from the acromioclavicular joint to the inferior scapula, with coronal and sagittal reformatting. COMPARISON: None. FINDINGS: Image quality: Diagnostic. Significant beam hardening artifacts from shoulder prosthesis are seen. Bones: Patient is status post left shoulder arthroplasty. Slight superior migration of humeral head in relation to glenoid is seen. No acute fracture or dislocation. Moderate acromioclavicular joint osteoarthritic changes are seen. No gross hardware loosening or failure. No suspicious intraosseous lesion. Visualized left upper ribs are intact. Soft tissues: There is full-thickness rupture involving anterior fibers of distal supraspinatus at its insertion on the humeral head with contrast material extending to subacromial subdeltoid bursa. No significant muscle atrophy is seen on sagittal images. No abnormal soft tissue calcifications. No gross intra-articular loose bodies. IMPRESSION: 1. Prior left shoulder arthroplasty with anatomic shoulder alignment. No fracture or dislocation. No gross hardware loosening or failure. No suspicious bony lesion. Moderate acromioclavicular joint osteoarthritis. 2. Suggestion of full-thickness rupture involving anterior and possibly mid fibers of distal supraspinatus with contrast extending to subacromial subdeltoid bursa. No significant muscle atrophy. No abnormal soft tissue calcifications or gross intra-articular loose bodies. Dictated by: Markel Carrera M.D. on 07/13/2022 at 15:49 Approved by: Markel Carrera M.D. on 07/13/2022 at 15:53
--- NOTE | 2022-07-13 13:00 | DI.RAD.S_ITS ---
PROCEDURE: FL SHOULDER INJECTION MR/CT LT INDICATIONS: Pain in left shoulder COMPARISON: None. TECHNIQUE: The indications, alternatives, benefits, risks, and complications of the procedure were explained to the patient. Written informed consent was obtained and placed in the chart. The shoulder was examined fluoroscopically and a site for needle placement chosen for entry into the glenohumeral joint from an anterior approach. The skin was prepped and draped in a sterile fashion, and 1% lidocaine infiltrated from skin down to joint capsule. A spinal needle was inserted into the glenohumeral joint, and a small amount of iodinated contrast media injected to confirm intra-articular placement of the needle tip. This was followed by approximately 12 mL of iodinated contrast. The needle was removed and a dressing was applied. The patient was given postprocedural instructions and sent to the CT suite for imaging. FINDINGS: A single fluoroscopic spot image demonstrates intra-articular location of injected iodinated contrast. IMPRESSION: Successful fluoroscopically guided administration of iodinated contrast solution into the shoulder joint for CT arthrogram. Dictated by: Markel Carrera M.D. on 07/13/2022 at 14:31 Approved by: Markel Carrera M.D. on 07/13/2022 at 14:31
== END ==
PROVIDERS: PCP Family Medicine; Referring Provider Orthopaedic Surgery; Visit Provider Orthopaedic Surgery
DX: M25.512 Pain in left shoulder (principal); M19.012 Primary osteoarthritis, left shoulder; Z96.612 Presence of left artificial shoulder joint
CPT/HCPCS: 23350; 73201

== ENCOUNTER 2022-08-07 15:07 | Emergency (ER) | payer MEDICARE, OTHER, SELFPAY ==
[2022-02-02 13:59] VITALS: BMI 38.0
[2022-08-07 15:17] VITALS: BP 149/70; PULSE 73; RESP 16; TEMP 36.4; O2SAT 98
--- NOTE | 2022-08-07 15:22 | DI.RAD.S_ITS ---
PROCEDURE: XR CHEST 2V INDICATIONS: Wheezing increase SOB TECHNIQUE: 2 views of the chest were acquired. COMPARISON: [facility], CR, XR CHEST 2V, 12/28/2020, 16:06. FINDINGS: Surgical changes and devices: Interval left shoulder arthroplasty, right upper quadrant clips. Lungs and pleura: Lungs are clear. No pleural effusions or pneumothorax. Mediastinum: Mediastinal contours are normal. Heart size is normal. Bones and chest wall: No suspicious bony abnormalities. Soft tissues appear unremarkable. IMPRESSION: No evidence acute pulmonary process. Dictated by: Rylan Robertson M.D. on 08/07/2022 at 15:59 Approved by: Rylan Robertson M.D. on 08/07/2022 at 16:00
== END 2022-08-07 18:52 | disposition left against medical advice (07) ==
PROVIDERS: Emergency Provider Emergency Medicine; PCP Family Medicine
DX: R06.2 Wheezing (principal)
CPT/HCPCS: 71046; 99283

== ENCOUNTER → 2023-01-30 | Outpatient (CLI) | payer OTHER, SELFPAY ==
[2022-11-22 14:00] VITALS: BMI 38.0
--- NOTE | 2023-01-30 | DI.RAD.S_ITS ---
Bone Density Report Name: MARY ANTONIO Age: 68 Sex: Female Ethnicity: White Date of : 1955 Indication: postmenopausal osteoporosis; Referring Provider: NICKI FOWLER Study: Bone densitometry was performed. Exam Date: January 30, 2023 Accession number: [id number] Bone Density: Region BMD T-score Z-score Classification AP Spine(L1-L4) 0.852 -1.8 0.3 Osteopenia Femoral Neck (Left) 0.525 -2.9 -1.2 Osteoporosis Total Hip (Left) 0.605 -2.8 -1.3 Osteoporosis Femoral Neck (Right) 0.558 -2.6 -0.9 Osteoporosis Total Hip (Right) 0.652 -2.4 -0.9 Osteopenia Total Hip Mean 0.629 -2.6 -1.1 Osteoporosis World Health Organization criteria for BMD impression classify patients as: Normal (T-score at or above -1.0), Osteopenia (T-score between -1.0 and -2.5), or Osteoporosis (T-score at or below -2.5). 10-year Fracture Risk: FRAX not reported because: Some T-score for Spine Total or Hip Total or Femoral Neck at or below -2.5 Previous Exams: -- Region Exam Age BMD T-score BMD Change BMD Change Date g/cm2 vs Baseline vs Previous -- AP Spine (L1-L4) 01/30/2023 68 0.852 -1.8 -0.136 (-13.8%)# -0.136 (-13.8%)# 06/21/2021 66 0.989 -0.5 Total Hip(Left) 01/30/2023 68 0.605 -2.8 -0.027 (-4.3%)# -0.027 (-4.3%)# 06/21/2021 66 0.632 -2.5 Total Hip(Right) 01/30/2023 68 0.652 -2.4 0.008 (1.2%)# 0.008 (1.2%)# 06/21/2021 66 0.644 -2.4 -- *Denotes significance at 95% confidence level, LSC for AP Spine = 0.022 g/cm2, LSC for Total Hip = 0.027 g/cm2 # Denotes dissimilar scan types or analysis methods Impression: The patient has osteoporosis, based on the Left Femoral Neck T-score. No significant bone loss was observed. Discussion: INCREASED RISK OF FRACTURE. BONE DENSITY IS UNDESIRABLY LOW AT ONE OR MORE SKELETAL SITES, CONSISTENT WITH POSTMENOPAUSAL OSTEOPOROSIS. This patient's lowest T-score meets the World Health Organization's (WHO) criteria for osteoporosis at one or more sites (T-score -2.5 or below). In untreated patients, the risk of osteoporotic fracture increases approximately two-fold for each 1.0 SD decrease in T-score. Low bone density is not the only risk factor for fracture; also consider factors such as patient's age, frailty or poor health, risk of falling, risk of injury, previous osteoporotic fracture, family history of osteoporosis, cigarette smoking, low body weight, etc. Not everyone with low bone mineral density has osteoporosis; osteomalacia and other metabolic bone disorders should also be considered. Patients who have osteoporosis should be evaluated for specific diseases and conditions (secondary causes) that may cause or contribute to bone loss. The [place] Association of Clinical Endocrinologists (AACE) and National Osteoporosis Foundation (NOF) recommend pharmacologic intervention for all postmenopausal women whose T-score is in this range. The patient should follow a healthful lifestyle (good nutrition with adequate calcium and vitamin D, and appropriate weight-bearing exercise). Follow-Up: Consider a repeat BMD and Vertebral Fracture Assessment (VFA) exam in 2 years or sooner if medically necessary, to reassess this patient's status. Reported by: MELODY KEMP M.D. on 01/30/2023 2:36:00 PM.
== END ==
PROVIDERS: PCP Family Medicine; Referring Provider Internal Medicine; Visit Provider Internal Medicine
DX: M81.0 Age-related osteoporosis without current pathological fracture; Z13.820 Encounter for screening for osteoporosis
CPT/HCPCS: 77080

== ENCOUNTER → 2023-10-30 08:37 | Outpatient (CLI) | payer MEDICARE, OTHER, SELFPAY ==
[2022-11-22 14:00] VITALS: BMI 38.0
--- NOTE | 2023-10-30 | DI.CT.S_ITS ---
PROCEDURE: CT SHOULDER LEFT WITHOUT CON INDICATIONS: Presence of left artificial shoulder joint TECHNIQUE: Noncontrast 1-1.5 mm thick sections acquired from the acromioclavicular joint to the inferior scapula, with oblique coronal and oblique sagittal reformatting. COMPARISON: [facility], CT, CT SHOULDER LEFT ARTHROGRAM, 08/07/2023, 11:46. FINDINGS: Image quality: Excellent. Bones: Postsurgical changes again seen from conventional left total shoulder arthroplasty. Hardware components are in stable positions without signs loosening. No acute osseous fracture. Humeral head is high-riding and nearly abuts the undersurface of the acromion. The coracohumeral distance is also narrowed. Moderate degenerative changes are seen at the acromioclavicular joint. Included left-sided ribs are intact. Soft tissues: No significant glenohumeral effusion or periarticular mass. There is mild atrophy and fatty infiltration of the supraspinatus and subscapularis muscles that is suspicious for chronic tendon tearing. The degree of muscle atrophy appears similar when compared to the CT from 08/07/2023. The ligaments and tendons are not well evaluated with standard CT. The included left lung is clear. IMPRESSION: 1. Postsurgical changes from total shoulder arthroplasty with hardware components in stable positions. No acute osseous abnormality. No significant periarticular fluid collection. 2. Subluxation of the humeral head with narrowing of the acromiohumeral and coracohumeral distance is as well as mild chronic atrophy of the supraspinatus and subscapularis muscles is suspicious for underlying full-thickness tendon tearing, as suggested on the prior CT from 08/07/2023. 3. Moderate acromioclavicular joint osteoarthrosis. Approved by: Vincent Landaverde M.D. on 10/30/2023 at 11:44
== END ==
LOC: CT 08:38
PROVIDERS: PCP Student in an Organized Health Care Education/Training Program; Referring Provider Orthopaedic Surgery; Visit Provider Orthopaedic Surgery
DX: S43.002A Unspecified subluxation of left shoulder joint, initial encounter (principal); M19.012 Primary osteoarthritis, left shoulder; M25.512 Pain in left shoulder; G89.29 Other chronic pain; Z96.612 Presence of left artificial shoulder joint
CPT/HCPCS: 73200

== ENCOUNTER → 2024-02-19 17:18 | Outpatient (CLI) | payer MEDICARE, OTHER, SELFPAY ==
[2024-01-21 10:05] VITALS: BMI 38.0
--- NOTE | 2024-02-19 17:22 | DI.RAD.S_ITS ---
PROCEDURE: XR CHEST 2V INDICATIONS: Abnormal rapid weight loss TECHNIQUE: 2 views of the chest were acquired. COMPARISON: [facility], , XR CHEST 2V, 08/07/2022, 15:27. FINDINGS: Surgical changes and devices: Partially evaluated left shoulder and proximal femoral hardware. Right upper quadrant surgical clips. Lungs and pleura: Lungs are clear. No pleural effusions or pneumothorax. Mediastinum: Mediastinal contours are normal. Heart size is normal. Bones and chest wall: No suspicious bony abnormalities. Soft tissues appear unremarkable. IMPRESSION: No acute cardiopulmonary abnormality is seen. Approved by: Josefina Priest M.D.,Ph.D. on 02/19/2024 at 18:28
[2024-02-19 18:12] LABS: Add Manual Diff / Slide Review NO; Basophils Absolute Auto 0 /uL (0-100); Basophils Percent Auto 0.2 % (0-2); Eosinophils Absolute Auto 200 /uL (0-450); Eosinophils Percent Auto 2.1 % (2-4); Hematocrit 41.3 % (36-46); Hemoglobin 13.8 g/dL (12.0-16.0); Lymphocytes Absolute Auto 2500 /uL (1100-4500); Lymphocytes Percent Auto 27.5 % (25-40); Mean Corpuscular HGB Conc 33.4 % (30-36); Mean Corpuscular Hemoglobin 27.8 PG (26-34); Mean Corpuscular Volume 83.2 fL (80-100); Monocytes Absolute Auto 400 /uL (0-900); Monocytes Percent Auto 4.3 % (3-14); Neutrophils Absolute Auto 6100 /uL (1500-7000); Neutrophils Percent Auto 65.9 % (50-75); Platelet Count 405 X10^3/uL (150-400); Red Blood Cell Count 4.96 X10^6/uL (4.0-5.2); Red Cell Distribution Width 14.7 % (11.6-14.8); White Blood Cell Count 9.3 X10^3/uL (4.5-11.0)
[2024-02-19 18:27] LABS: Erythrocyte Sedimentation Rate 13 MM/HR (0-20)
[2024-02-19 18:39] LABS: Albumin 4.3 g/dL (3.5-5.0); Albumin Globulin Ratio 1.4 (1.0-2.8); Alkaline Phosphatase 127 U/L (38-126); Aspartate Aminotransferase 26 IU/L (14-36); Bilirubin Total 0.6 mg/dL (0.2-1.3); Carbon Dioxide 22 mmol/L (22-32); Chloride 111 mmol/L (98-107); Estimated Glomerular Filt Rate > 60 mL/min (>60); Globulin 3.1 g/dL (1.7-4.1); HEMOLYSIS < 15 (0-50); Potassium 3.8 mmol/L (3.4-5.1); Sodium 140 mmol/L (137-145); Total Protein 7.4 g/dL (6.3-8.2)
[2024-02-19 19:08] LABS: TSH w/ Reflex to FT4 1.17 uIU/mL (0.47-4.68)
[2024-02-19 19:12] LABS: Alanine Aminotransferase 15 IU/L (<35); BUN Creatinine Ratio 33.3 (6-22); Blood Urea Nitrogen 20 mg/dL (7-17); Calcium 9.3 mg/dL (8.4-10.2); Glucose 108 mg/dL (80-110)
[2024-02-19 19:26] LABS: C-Reactive Protein Quant < 0.5 mg/dL (<1.0)
== END ==
PROVIDERS: PCP Student in an Organized Health Care Education/Training Program; Referring Provider Student in an Organized Health Care Education/Training Program; Visit Provider Student in an Organized Health Care Education/Training Program
DX: R63.4 Abnormal weight loss (principal)
CPT/HCPCS: 36415; 71046; 80053; 83036; 84443; 85025; 85651; 86140

== ENCOUNTER → 2024-03-10 14:36 | Outpatient (CLI) | payer MEDICARE, OTHER, SELFPAY ==
[2024-01-21 10:05] VITALS: BMI 38.0
--- NOTE | 2024-03-10 14:38 | DI.MG.S_ITS ---
BILATERAL DIGITAL SCREENING MAMMOGRAM 3D/2D WITH CAD: 03/10/2024 CLINICAL: Routine screening. Comparison is made to exams dated: 06/19/2022 mammogram, 01/01/2021 mammogram, and 10/29/2019 mammogram - [facility]. Both breasts are heterogeneously dense, which may obscure small masses (category c / 51-75% glandular tissue). Current study was also evaluated with a Computer Aided Detection (CAD) system. There are benign calcifications in both breasts. There also are benign vascular calcifications in both breasts. No significant masses, calcifications, or other findings are seen in either breast. There has been no significant interval change. IMPRESSION: BENIGN There is no mammographic evidence of malignancy. A 1 year screening mammogram is recommended. Based on the Tyrer Cuzick model (a risk assessment model) the patient's lifetime risk is 5.7% and her 10 year risk is 3.6%. According to the ACR, ACS, and NCCN guidelines, an annual breast MRI exam along with mammogram is recommended if the patient's lifetime risk is 20% or greater. This exam was interpreted at Station ID: [id number]. NOTE: For mammograms, a report in lay terms will be sent to the patient. Approximately 15% of breast malignancies will not be visualized mammographically. In the management of a palpable breast mass, a negative mammogram must not discourage biopsy of a clinically suspicious lesion. Electronically Signed By: Natacha moreno/lacy:03/11/2024 08:33:51 letter sent: Normal Exam ACR BI-RADS Category 2: Benign Finding(s) 3342F
== END ==
PROVIDERS: PCP Student in an Organized Health Care Education/Training Program; Referring Provider Student in an Organized Health Care Education/Training Program; Visit Provider Student in an Organized Health Care Education/Training Program
DX: Z12.31 Encounter for screening mammogram for malignant neoplasm of breast (principal); R92.333 Mammographic heterogeneous density, bilateral breasts
CPT/HCPCS: 77063; 77067

== ENCOUNTER → 2024-12-04 14:15 | Outpatient (CLI) | payer MEDICARE, OTHER, SELFPAY ==
[2024-01-21 10:05] VITALS: BMI 38.0
--- NOTE | 2024-12-04 14:18 | DI.US.S_ITS ---
PROCEDURE: US THYROID INDICATIONS: Thyroid nodule TECHNIQUE: Real-time scanning was performed of the thyroid gland, with image documentation. COMPARISON: None. FINDINGS: Thyroid: Right lobe measures 4.2 x 1.8 x 2.2 cm. Status post left thyroidectomy. No mass in the left thyroid bed. Isthmus is 0.7 cm thick. Echotexture is heterogeneous. Nodule number: 1 Location: Right superior Size: 1.5 x 1.1 x 1.0 cm Composition: Solid Echogenicity: Hypoechoic Shape: wider than tall. Margins: Smooth Echogenic foci: Punctate echogenic foci Total points: 7 ACR TI-RADS category: 5 Nodule number: 2 Location: Right mid anterior Size: 1.4 x 0.8 x 1.0 cm Composition: Solid Echogenicity: Hypoechoic Shape: wider than tall. Margins: Smooth Echogenic foci: Punctate echogenic foci Total points: 7 ACR TI-RADS category: 5 Nodule number: 3 Location: Right mid/inferior posterior Size: 1.1 x 1.3 x 1.3 cm Composition: Solid Echogenicity: Hypoechoic Shape: wider than tall. Margins: Smooth Echogenic foci: Macrocalcification Total points: 5 ACR TI-RADS category: 4 Nodule number: 4 Location: Isthmus Size: 1.2 x 0.7 x 1.4 cm Composition: Solid Echogenicity: Hypoechoic Shape: wider than tall. Margins: Smooth of Echogenic foci: Punctate echogenic foci Total points: 7 ACR TI-RADS category: 5 IMPRESSION: Status post left thyroidectomy. Multiple right-sided nodules. Recommend ultrasound-guided fine-needle aspiration of the 2 most suspicious nodules, right superior nodule #1 and isthmus nodule #4. ACR TI-RADS definitions and recommendations: TI-RADS 1 (benign): 0 points. FNA not needed. TI-RADS 2 (not suspicious): 2 points. FNA not needed. TI-RADS 3: 3 points. * FNA if 2.5 cm or larger, follow up if 1.5 cm or larger (at 1, 3, and 5 years). TI-RADS 4: 4-6 points. * FNA if 1.5 cm or larger, follow up if 1 cm or larger (at 1, 2, 3, and 5 years). TI-RADS 5: 7 points or more. * FNA if 1 cm or larger, follow up if 0.5 cm or larger (every year for 5 years). Approved by: Vincent Landaverde M.D. on 12/05/2024 at 11:11
== END ==
PROVIDERS: PCP Student in an Organized Health Care Education/Training Program; Referring Provider Student in an Organized Health Care Education/Training Program; Visit Provider Student in an Organized Health Care Education/Training Program
DX: E04.2 Nontoxic multinodular goiter (principal)
CPT/HCPCS: 76536

== ENCOUNTER → 2024-12-29 14:43 | Outpatient (CLI) | payer MEDICARE, OTHER, SELFPAY ==
[2024-01-21 10:05] VITALS: BMI 38.0
--- NOTE | 2024-12-29 | PATH_ITS ---
Note [facility] Accession Number: [id number] TESTS RESULT FLAG UNITS REF RANGE LAB Clinician Provided Cytology Information No. of containers..01 Other (Miscellaneous) No. of containers..02 Previously Prepared Cytology Slide Source: RIGHT THYROID NODULE #1 (SUPERIOR) A DIAGNOSIS: 01 RIGHT THYROID NODULE #1 (SUPERIOR) A, FINE NEEDLE ASPIRATION. NEGATIVE FOR MALIGNANT CELLS. ADEQUATE FOR EVALUATION. COLLOID AND FOLLICULAR GROUPS ARE PRESENT. BENIGN FOLLICULAR (GOITEROUS) NODULE (BETHESDA CATEGORY II), SEE COMMENT. COMMENT: MICROSCOPIC EXAMINATION REVEALS A MILDLY CELLULAR ASPIRATE, COMPOSED OF COLLOID, FOLLICULAR GROUPS WITHOUT SIGNIFICANT CYTOLOGIC OR ARCHITECTURAL ATYPIA, AND BACKGROUND MACROPHAGES. THESE FINDINGS SUPPORT A BENIGN FOLLICULAR (GOITEROUS) NODULE. CORRELATION WITH CLINICAL AND RADIOGRAPHIC FINDINGS IS RECOMMENDED. ACCORDING TO THE BETHESDA REPORTING SYSTEM FOR THYROID CYTOPATHOLOGY, THE RISK OF MALIGNANCY IN THE CATEGORY BENIGN-CATEGORY II IS 0-3%; THEREFORE RECOMMEND CONTINUED ULTRASOUND SURVEILLANCE WITH REPEAT FNA IF THE NODULE SIGNIFICANTLY INCREASES IN SIZE. Pathologist ICD10: 01 E04.1 Signed out by: Sarah Meyers MD, Pathologist NPI- [id number] Performed by: Rik Webb, Cut To Length Operator ([facility]) Gross description: 30 CC, RED, CLEAR RECIEVED: IN CYTOLYT WITH 6 ALCOHOL FIXED AND 6 QUICK STAINED SLIDES ALSO 1 RNA VIAL WILL ON 04-24-2025.VO /VDU 12/30/[address] [place] [address] FLAG LEGEND: L-Low Normal,H-High Normal,LL-Alert Low,HH-Alert High <-Panic Low,>-Panic High,A-Abnormal,AA-Critical Abnormal Performed at: [address] [address], [place] [address] Bryan Lanza MD, Specimen Comment: [id number] Performed at: [address] [address], [place], [place] [id number] MD Bryan Lanza MD Phone: [phone]
--- NOTE | 2024-12-29 | PATH_ITS ---
Note [facility] Accession Number: [id number] TESTS RESULT FLAG UNITS REF RANGE LAB Clinician Provided Cytology Information No. of containers..01 Other (Miscellaneous) No. of containers..02 Previously Prepared Cytology Slide Source: 01 ISTHMUS NODULE #4 (B) DIAGNOSIS: 01 ISTHMUS NODULE #4 (B), FINE NEEDLE ASPIRATION. NEGATIVE FOR MALIGNANT CELLS. ADEQUATE FOR EVALUATION. FOLLICULAR GROUPS ARE PRESENT. FAVOR BENIGN FOLLICULAR (GOITEROUS) NODULE (BETHESDA CATEGORY II), SEE COMMENT. COMMENT: MICROSCOPIC EXAMINATION REVEALS A MILDLY CELLULAR ASPIRATE, COMPOSED OF COLLOID, FOLLICULAR GROUPS WITH HURTHLE CELL CHANGES, WITHOUT SIGNIFICANT CYTOLOGIC OR ARCHITECTURAL ATYPIA, AND BACKGROUND MACROPHAGES. THESE FINDINGS FAVOR A BENIGN FOLLICULAR (GOITEROUS) NODULE. CORRELATION WITH CLINICAL AND RADIOGRAPHIC FINDINGS IS RECOMMENDED. ACCORDING TO THE B[place] REPORTING SYSTEM FOR THYROID CYTOPATHOLOGY, THE RISK OF MALIGNANCY IN THE CATEGORY BENIGN-CATEGORY II IS 0-3%; THEREFORE RECOMMEND CONTINUED ULTRASOUND SURVEILLANCE WITH REPEAT FNA IF THE NODULE SIGNIFICANTLY INCREASES IN SIZE. Pathologist ICD10: 01 E04.2 Signed out by: Katie Meyers MD, Pathologist NPI- [id number] Performed by: Katie Webb, Sales Contracts Analyst ([facility]) Gross description: 01 30 CC, COLORLESS, CLEAR RECIEVED: IN CYTOLYT WITH 6 ALCOHOL FIXED AND 6 QUICK STAINED SLIDES ALSO 1 RNA VIAL WILL ON 04-24-2025.VO /VDU 12/30/[address] [place] [address] FLAG LEGEND: L-Low Normal,H-High Normal,LL-Alert Low,HH-Alert High <-Panic Low,>-Panic High,A-Abnormal,AA-Critical Abnormal Performed at: [address] [address], [place] [address] Bryan Lanza MD, Performed at: [address] [address], [place], [place] [id number] MD Bryan Lanza MD Phone: [phone]
--- NOTE | 2024-12-29 14:44 | DI.US.S_ITS ---
PROCEDURE: US FINE NEEDLE ASPIRATION INDICATIONS: Suspicious Thyroid Nodules TECHNIQUE: The indications, alternatives, benefits, risks, and complications of the procedure were explained to the patient. Written informed consent was obtained and placed in the chart. The thyroid region was examined sonographically and a site was chosen for ultrasound guided percutaneous sampling. The skin was prepared and draped in the usual fashion, and anesthetized with 1% lidocaine infiltrated from the skin down to the thyroid gland. Multiple passes were then performed, with contents emptied into an appropriate pathology specimen container. A bandage was applied to the area of access at completion of the study. COMPARISON: None. FINDINGS: Location(s) of lesion(s) sampled: Upper pole right thyroid lobe nodule and isthmus nodule. Donaldson: 25 gauge hypodermic needles. Number of passes: 6 passes for each nodule. Medications: 1% lidocaine for local anaesthesia. Complications: None. IMPRESSION: Successful ultrasound-guided thyroid nodule fine needle aspiration, with cytology results pending. Please see chart below for management recommendations based on cytology results. [facility] ReportingRecommendationsNon-diagnostic* Repeat US-guided FNA, with on-site cytology evaluation if possible. * Repeated non-diagnostic nodules without high suspicion US features: close observation vs surgical consult. * Consider surgery if nodule has high suspicion US features, grows >20% in 2 dimensions on followup, or patient has clinical risk factors for malignancy. Benign* If nodule has high suspicion US features: repeat US and FNA within 12 months. * If nodule has low to intermediate suspicion US features: repeat US at 12-24 months. If nodule grows (20% increase in at least 2 dimensions, with minimal increase of 2 mm or >50% change in volume), or development of new suspicious US features, then repeat FNA or continue followup. * If nodule has very low suspicion US features: followup US at >24 months. Atypia of undetermined significance, follicular lesion of undetermined significanceRepeat FNA, molecular testing, followup US, or surgical consult.Follicular neoplasm, suspicious for follicular neoplasmSurgical consult; also consider molecular testing. Suspicious for malignancySurgical consult.MalignantSurgical consult. Dictated by: Markel Carrera M.D. on 12/29/2024 at 17:01 Approved by: Markel Carrera M.D. on 12/29/2024 at 17:02
== END ==
PROVIDERS: PCP Student in an Organized Health Care Education/Training Program; Referring Provider Student in an Organized Health Care Education/Training Program; Visit Provider Student in an Organized Health Care Education/Training Program
DX: E04.2 Nontoxic multinodular goiter (principal)
CPT/HCPCS: 10005

== ENCOUNTER → 2025-05-29 11:21 | Outpatient (CLI) | payer MEDICARE, OTHER, SELFPAY ==
[2024-01-21 10:05] VITALS: BMI 38.0
== END ==
PROVIDERS: PCP Student in an Organized Health Care Education/Training Program; Visit Provider Urology
DX: R10.9 Unspecified abdominal pain (principal); R39.9 Unspecified symptoms and signs involving the genitourinary system
CPT/HCPCS: 87086

== ENCOUNTER → 2025-05-29 12:54 | Outpatient (CLI) | payer MEDICARE, OTHER, SELFPAY ==
[2024-01-21 10:05] VITALS: BMI 38.0
--- NOTE | 2025-05-29 12:56 | DI.CT.S_ITS ---
PROCEDURE: CT KIDNEY URETER BLADDER (KUB) INDICATIONS: 70 y/o F w/ left flank pain concerning for stone TECHNIQUE: Axial sections were acquired from the lung bases to the pubic symphysis. Coronal and sagittal reformats were performed. For radiation dose reduction, the following was used: automated exposure control, adjustment of mA and/or kV according to patient size. COMPARISON: None. FINDINGS: Image quality: Diagnostic. Lower Chest: No significant findings. URINARY: Right Kidney: Punctate mid pole parenchymal calculus. 1.7 cm fatty mass arising from the anteromedial lower pole. No collecting system stone or hydronephrosis. Right Ureter: No hydroureter, ureteral calculus, or periureteric inflammation. Left Kidney: Normal renal morphology. No stone or hydronephrosis. Left Ureter: No hydroureter, ureteral calculus, or periureteric inflammation. Bladder: Normal wall thickness. No stones. ABDOMEN: Liver: No contour-deforming solid mass. Gallbladder: Surgically absent. Biliary ducts: Mildly diffusely dilated, above expected post cholecystectomy. Common duct measures about 1.8 cm. Pancreas: No ductal dilation. Spleen: Size is within normal limits. Adrenal Glands: No adrenal nodules. Stomach and Bowel: Surgical changes of gastric sleeve and gastric bypass. Mid abdominal small bowel mass stenosis appears normal. No stomach or bowel dilatation. Diverticulosis and increased quantity of stool in the colon. No pericolonic fat stranding or wall thickening. Peritoneum: No abnormal intraperitoneal fluid. No free air. Ventral Wall: Mesh in place for epigastric ventral hernia repair. Tiny residual umbilical hernia. Abdominal Nodes: No enlarged retroperitoneal or mesenteric lymph nodes. Vessels: Aorta and inferior vena cava are normal in size. PELVIS: Pelvic Organs: Age-appropriate. Pelvic Nodes: Unremarkable. Miscellaneous: Small fat containing right inguinal hernia. Bones: Unremarkable. Nonunited left 12 rib fracture. IMPRESSION: No obstructing stones or hydronephrosis. Post cholecystectomy with slightly greater than expected biliary dilatation. Correlate with LFTs to determine clinical significance. Diverticulosis and distal colonic obstipation. Expected changes of gastrointestinal surgery without evidence of complication. Dictated by: Natacha Mullen M.D. on 05/29/2025 at 13:47 Approved by: Natacha Mullen M.D. on 05/29/2025 at 13:56
== END ==
PROVIDERS: PCP Student in an Organized Health Care Education/Training Program; Referring Provider Urology; Visit Provider Urology
DX: K59.00 Constipation, unspecified (principal); K57.90 Diverticulosis of intestine, part unspecified, without perforation or abscess without bleeding; K40.90 Unilateral inguinal hernia, without obstruction or gangrene, not specified as recurrent; K83.8 Other specified diseases of biliary tract; N28.9 Disorder of kidney and ureter, unspecified; R10.9 Unspecified abdominal pain; Z98.84 Bariatric surgery status; Z90.49 Acquired absence of other specified parts of digestive tract; R39.9 Unspecified symptoms and signs involving the genitourinary system
CPT/HCPCS: 74176; 87086

== ENCOUNTER 2025-08-07 18:29 | Emergency (ER) | payer MEDICARE, OTHER, SELFPAY ==
[2024-01-21 10:05] VITALS: BMI 38.0
[2025-08-07 19:16] VITALS: BP 133/79; PULSE 74; RESP 17; TEMP 36.6; O2SAT 98; BMI 24.0
[2025-08-07 20:20] VITALS: BP 141/73; PULSE 80; RESP 16; O2SAT 98
--- NOTE | 2025-08-07 21:00 | PC.NURSE ---
pt has a possible abscess to the left axilla in an old scar, pt states it drained white stuff at home, area is about the size of a golf ball with a clear head
[2025-08-07 23:42] VITALS: BP 149/76; PULSE 80; RESP 20; O2SAT 96
--- NOTE | 2025-08-07 23:42 | ED_ITS ---
HPI - Skin/Abscess/Foreign Bdy General Chief complaint: Skin/Abscess/Foreign Body Stated complaint: HX L shoulder surgery, seeping growth along scar Time Seen by Provider: 08/07/25 23:42 Source: patient Mode of arrival: Wheelchair History of Present Illness HPI narrative: Patient is a 70-year-old female who presents from home for evaluation of swelling abscess to left shoulder region she states that she recently had surgery after breaking it and noticed some swelling draining abscess several days ago, she denies any other symptoms such as fever chills shoulder pain she states that her surgeon did see this initially when it 1st started but just told her to wait. She denies any other symptoms at this time Related Data Previous Rx's ?Medication ?Instructions ?Recorded albuterol sulfate 2.5 mg/3 mL 2.5 mg (3 mL) inhalation Q4-6H PRN 12/29/19 (0.083 %) solution for nebulization shortness of breat h or wheezing #90 mL albuterol sulfate 90 mcg/actuation 2 puff inhalation Q 6H PRN 08/25/21 aerosol inhaler shortness of breath or wheez ing #25.5 grams epinephrine 0.3 mg/0.3 mL 0.3 mg (0.3 mL) IM ONCE #2 e a 10/12/23 injection, auto-injector (EpiPen 2-Mark) nitroglycerin 0.3 mg sublingual 0.3 mg sublingual Q5M PRN chest 10/12/23 tablet pain #10 tabs ondansetron 8 mg disintegrating 8 mg PO Q12H PRN nause a and 12/06/23 tablet vomiting #60 tabs albuterol 90 mcg-budesonide 80 2 inh inhalation ONCE # 10.7 grams 04/25/24 mcg/actuation HFA aerosol inhaler (Airsupra) hydroxyzine pamoate 25 mg capsule 25 mg PO BID PRN itc ciara #60 caps 04/25/24 (Vistaril) Disabled Parking Permit #1 ea 12/05/24 budesonide-formoterol HFA 160 2 puff PO BID #30.6 gram s 02/27/25 mcg-4.5 mcg/actuation aerosol inhaler prednisone 20 mg tablet 40 mg (2 x 20 mg) PO DAILY # 6 tabs 03/10/25 oxycodone 10 mg tablet 10 mg PO QID PRN pain #120 t abs 04/21/25 oxycodone 10 mg tablet 10 mg PO QID PRN pain #120 t abs 04/21/25 pregabalin 150 mg capsule 150 mg PO BID #60 caps 04/21 vortioxetine 20 mg tablet 20 mg PO DAILY 90 days #90 t abs 04/23/25 clonazepam 1 mg tablet 1 mg PO BID #60 tabs 5 oxycodone 10 mg tablet 10 mg PO Q4H PRN pain #140 t abs 07/07/25 doxycycline hyclate 100 mg capsule 100 mg PO BID 1 wee k #14 caps 08/08/25 Allergies Allergy/AdvReac Type Severity Reaction Status Date / Time sulfamethoxazole (From Allergy Severe HIVES AND Verified 08/07/25 19:16 ) THROAT SWELLING trimethoprim (From ) Allergy Severe HIVES AND Verified 08/07/25 19:16 THROAT SWELLING venom-honey bee (BEE VENOM Allergy Severe ANAPHYLAXIS Verified 08/07/25 19:16 (HONEY BEE)) peanut (PEANUT) Allergy Intermediate ITCHING Verified 08/07/25 19:16 alendronate sodium AdvReac Severe FELT Verified 08/07/25 19:16 (ALENDRONATE SODIUM) TERRIBLE, CHEST PAINS aspirin AdvReac Severe GI Bleed Verified 08/07/25 19:16 ergot alkaloids (ERGOT AdvReac Severe I DON'T Verified 08/07/25 19:16 ALKALOIDS) FEEL RIGHT, FEELING LIKE I'M FALLING BACKWARD ibuprofen AdvReac Severe GI Bleed Verified 08/07/25 19:16 sumatriptan (SUMATRIPTAN) AdvReac Mild FELT Verified 08/07/25 19:16 WEIRD FOR 2 DAYS [place] Allergy Severe Blisters Uncoded 08/07/25 19:16 in mouth, swelling, dyspnea Review of Systems Review of Systems Narrative: General: Denies fever, chills, weight loss HEENT: Denies headache, eye drainage, eye irritation, head trauma, sore throat, voice change Cardiovascular: Denies any chest pain, palpitations, tachycardia Respiratory: Denies any shortness of breath, cough, wheeze, stridor GI/: Denies any abdominal pain, nausea, vomiting, diarrhea, bright red blood per rectum, melanotic stools, urinary frequency, urinary retention, dysuria, hematuria MSK: Denies any joint pain, muscle pains, swelling Skin: Abscess to left shoulder region Neuro: Denies any headache, lightheadedness, dizziness, fainting, weakness Psych: Denies SI/HI Patient History Medical History Deviated septum Numbness Essential hypertension Iron deficiency anemia Tobacco use Panic attack Asthma Vertigo (~2004) Sleep apnea (Unknown) Osteoporosis (~2006) Allergic rhinitis (1957) Osteoarthritis (1977) Anxiety (~1975) Depression (~1975) PTSD (post-traumatic stress disorder) (~1975) Fractures (2015) Osteopenia (2009) Chickenpox (1959) Measles (1960) Mumps (1968) Hearing loss (2014) Tinnitus of both ears (2014) Urinary incontinence (2015) 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 Grandfather Accident Grandmother Stroke Social History marital status: number of children: 2 household members: spouse lives independently: Yes education level: other occupational status: other Smoking Status: Former smoker alcohol intake: never substance use type: marijuana Smoking Status: Former smoker Exam Narrative Exam Narrative: General: Cooperative, well-developed, not in acute distress HEENT: Normocephalic, atraumatic, PERRLA, normal sclera, eyelids normal Neck: Active full range of motion, atraumatic Chest: Normal to inspection, negative crepitus, no overlying erythema ecchymosis Respiratory: Normal respiratory effort, not in acute respiratory distress, clear to auscultation bilaterally negative cough, wheeze, tachypnea, rhonchi, rales Cardiology: Regular rate rhythm negative gallop, murmur, rubs GI/: No tenderness to palpation, soft, non rigid, normal to inspection, exam deferred MSK: Full active range of motion in all 4 extremities, atraumatic, no tenderness to palpation of any bony prominences Skin: 1-1/2 x 1-1/2 cm abscess noted to the anterior aspect of the left shoulder, no overlying erythema no tenderness to palpation purulent discharge noted, Neuro: Alert awake oriented x3, moves all 4 extremities spontaneously, cranial nerves intact, able to answer all questions appropriately follows commands janet ropriately Psych: Cooperative, negative suicidal or homicidal ideations Initial Vital Signs Initial Vital Signs: Vital Signs Temperature 98 F 08/07/25 19:16 Pulse Rate 74 08/07/25 19:16 Respiratory Rate 17 08/07/25 19:16 Blood Pressure 133/79 08/07/25 19:16 Pulse Oximetry 98 08/07/25 19:16 Oxygen Delivery Method Room Air 08/07/25 19:16 Procedures Abscess I/D I&D #1: Time of procedure: 23:58 Site: upper extremity and other Side (if applicable): left Sedation/analgesia: none Technique: incised with #11 blade Amount of fluid expressed (mL): 3 Irrigation: No Packing used?: none Complications: other (None) Course Vital Signs Vital signs: Vital Signs - 8 hr 08/07/25 19:16 08/07/25 20:20 Temperature 98 F Pulse Rate 74 80 Respiratory Rate 17 16 Blood Pressure 133/79 141/73 H Pulse Oximetry 98 98 Oxygen Delivery Method Room Air Room Air MDM - Skin/Abscess/Foreign Bdy MDM Narrative Medical decision making narrative: Patient is a 70-year-old female presenting from home for evaluation of abscess/she noted for the past few days to her left shoulder, she states it is around the area of her well-healed scar after she had surgery repair to her left humerus, she states that her surgeon saw this initially few days ago but just told her to watch and wait however it got bigger and is now draining purulent discharge, on my exam a 1.5 x 1.5 cm fluctuant abscess was noted to the anterior aspect of the left upper extremity, bedside ultrasound shows superficial fluid collection does not appear to infiltrate/extend into the capsule region of the left shoulder, bedside incision and drainage was performed with 3 cc of purulent discharge, culture was sent patient will be discharged home with antibiotics and instructed follow up with her surgeon and primary care doctor, she verbalized understanding of this, she has no other gross deformities on her exam she is neurovascularly intact otherwise. Discharge Plan Departure Patient Disposition: Home Clinical Impression: Abscess Instructions: DI for Incision and Drainage of a Skin Abscess Activity Restrictions/Additional Instructions: Please take your antibiotics to completion and follow up with the primary care doctor and your surgeon Please read the discharge instructions sheet carefully and bring all papers to all doctor follow-up visits, as it may contain information that your doctor may want to see. Disease processes change and evolve, if your symptoms worsen or if you develop any new symptoms that are concerning to you please return for min luation. Your evaluation today does not show any evidence of any life- threatening/serious illnesses requiring admission to the hospital or surgery. Please follow-up with your doctor for re-evaluation in approximately 1 day. Seek immediate medical attention for any worrisome symptoms. *If you do not have a primary care provider please contact the [facility] Resource line at [phone]. They will ask some questions about your medical history and help get you set up with a doctor in the community. Prescriptions: New doxycycline hyclate 100 mg capsule 100 mg PO BID 7 Days Qty: 14 0RF No Action nitroglycerin 0.3 mg tablet, sublingual 0.3 mg SL Q5M PRN (Reason: chest pain) Qty: 10 1RF Rx Instructions: do not exceed 3 doses per episode epinephrine [EpiPen 2-Mark] 0.3 mg/0.3 mL auto-injector 0.3 mg IM ONCE Qty: 2 2RF Rx Instructions: as a single dose; may repeat once ondansetron 8 mg tablet,disintegrating 8 mg PO Q12H PRN (Reason: nausea and vomiting) Qty: 60 0RF budesonide-formoterol 160-4.5 mcg/actuation HFA aerosol inhaler 2 puff PO BID Qty: 30.6 9RF prednisone 20 mg tablet 40 mg PO DAILY Qty: 6 0RF oxycodone 10 mg tablet 10 mg PO QID PRN (Reason: pain) Qty: 120 0RF oxycodone 10 mg tablet 10 mg PO QID PRN (Reason: pain) Qty: 120 0RF pregabalin 150 mg capsule 150 mg PO BID Qty: 60 5RF oxycodone 10 mg tablet 10 mg PO Q4H PRN (Reason: pain) Qty: 140 0RF albuterol sulfate 2.5 mg /3 mL (0.083 %) solution for nebulization 2.5 mg INHALATION Q4-6H PRN (Reason: shortness of breath or wheezing) Qty: 90 0RF hydroxyzine pamoate [Vistaril] 25 mg capsule 25 mg PO BID PRN (Reason: itching) Qty: 60 3RF Airsupra 90-80 mcg/actuation HFA aerosol inhaler 2 inh inhalation ONCE Qty: 10.7 0RF Rx Instructions: as a single dose; may repeat up to 6 doses per day (12 inhalations) vortioxetine 20 mg tablet 20 mg PO DAILY 90 Days Qty: 90 3RF albuterol sulfate 90 mcg/actuation HFA aerosol inhaler 2 puff INHALATION Q6H PRN (Reason: shortness of breath or wheezing) Qty: 25.5 3RF (DME) Disabled Parking Permit See Rx Instructions .Route .MEDSUPPLY Qty: 1 0RF Rx Instructions: I find this patient to be medically disabled and qualified for Disabled Parking as indicated, and signed, on the accompanying Disabled Parking Application for Individuals ; clonazepam 1 mg tablet 1 mg PO BID Qty: 60 1RF Referrals: Maura Umana MD [Primary Care Provider, Family Practice] Stand Alone Forms: Patient Portal/API
--- NOTE | 2025-08-07 23:45 | PC.NURSE ---
pt moved to [address] Parham,
--- NOTE | 2025-08-07 23:55 | PC.NURSE ---
abscess drained of purulent fluid and dressing of telfa pad and tape per Dr Henry pt tolerated procedure well
[2025-08-08] MEDS: DOXYCYCLINE HYCLATE 100 MG TABLET PO (00:01)
== END 2025-08-08 00:20 | disposition home or self-care (01) ==
PROVIDERS: Emergency Provider Student in an Organized Health Care Education/Training Program; PCP Student in an Organized Health Care Education/Training Program
DX: L02.414 Cutaneous abscess of left upper limb (principal)
CPT/HCPCS: 10060; 87070; 87205; 99283

== ENCOUNTER → 2025-08-11 16:54 | Outpatient (CLI) | payer MEDICARE, OTHER, SELFPAY ==
[2024-01-21 10:05] VITALS: BMI 38.0
[2025-08-11 17:49] LABS: Add Manual Diff / Slide Review NO; Hematocrit 37.6 % (36-46); Hemoglobin 12.3 g/dL (12.0-16.0); Lymphocytes Absolute Auto 1800 /uL (1100-4500); Mean Corpuscular HGB Conc 32.8 % (30-36); Mean Corpuscular Hemoglobin 26.9 PG (26-34); Mean Corpuscular Volume 82.0 fL (80-100); Platelet Count 403 X10^3/uL (150-400)
[2025-08-11 18:04] LABS: Alanine Aminotransferase 15 IU/L (<35); Albumin 3.8 g/dL (3.5-5.0); Albumin Globulin Ratio 1.3 (1.0-2.8); Alkaline Phosphatase 126 U/L (38-126); Blood Urea Nitrogen 23 mg/dL (7-17); Calcium 8.9 mg/dL (8.4-10.2); Carbon Dioxide 27 mmol/L (22-32); Chloride 106 mmol/L (98-107); Estimated Glomerular Filt Rate > 60 mL/min (>60); Globulin 2.9 g/dL (1.7-4.1); Glucose 89 mg/dL (70-99); HEMOLYSIS < 15 (0-50); Potassium 4.6 mmol/L (3.4-5.1); Sodium 139 mmol/L (137-145); Total Protein 6.7 g/dL (6.3-8.2)
[2025-08-11 18:06] LABS: Lactate (Lactic Acid) 0.8 mmol/L (0.7-2.1)
[2025-08-11 18:34] LABS: Thyroid Stimulating Hormone 0.994 uIU/mL (0.47-4.68)
== END ==
PROVIDERS: PCP Student in an Organized Health Care Education/Training Program; Referring Provider Student in an Organized Health Care Education/Training Program; Visit Provider Student in an Organized Health Care Education/Training Program
DX: L03.90 Cellulitis, unspecified (principal); E04.1 Nontoxic single thyroid nodule
CPT/HCPCS: 36415; 80053; 83605; 84443; 85025

== ENCOUNTER → 2025-08-12 14:09 | Outpatient (CLI) | payer MEDICARE, OTHER, SELFPAY ==
[2024-01-21 10:05] VITALS: BMI 38.0
--- NOTE | 2025-08-12 14:17 | DI.CT.S_ITS ---
PROCEDURE: CT UE LT W CON INDICATIONS: fracture, cellulitis TECHNIQUE: After the administration of intravenous contrast, 3 mm axial sections acquired of the left upper arm, with coronal and sagittal reformats. COMPARISON: [facility], CR, XR HUMERUS LT 2V, 05/16/2025, 17:25. FINDINGS: Image quality: Diagnostic. Bones: Patient is status post prior left shoulder reverse arthroplasty and ORIF of proximal left humeral shaft. Increased radiolucency surrounding humeral component of the prosthesis in proximal to mid humeral shaft concerning for hardware loosening. Subacute appearing oblique fracture involving mid to distal humeral shaft is seen with callus formation around fracture site. There is dorsal and lateral displacement at fracture site and up to 3.2 cm overlapping at fracture site. No significant bony union is noted at fracture site concerning for delayed union or nonunion. No other fracture or dislocation is seen. No suspicious intraosseous lesion. Visualized left ribs are intact. Moderate acromioclavicular joint osteoarthritic changes are seen. Soft tissues: There is suggestion of anterior left upper arm soft tissue swelling and edema with overlying skin thickening extending to distal upper arm. No discrete drainable peripherally enhancing fluid collection is seen. Prominent left axillary lymph nodes are seen. There is suggestion of moderate left shoulder joint effusion without calcified intra-articular loose bodies. No discrete enhancing soft tissue mass is seen. IMPRESSION: 1. Cellulitis along anterior aspect of left proximal to mid upper arm. No discrete drainable abscess collection. Moderate left shoulder joint effusion, no calcified intra-articular loose bodies. 2. No enhancing soft tissue mass. Enlarged left axillary lymph nodes likely reactive in nature. 3. Suggestion of delayed union or nonunion at displaced oblique fracture site involving mid to distal left humeral shaft. 4. Suggestion of loosening involving humeral prosthesis as above. 5. No CT evidence of osteomyelitis. No acute fracture or dislocation. Dictated by: Markel Carrera M.D. on 08/12/2025 at 16:12 Approved by: Markel Carrera M.D. on 08/12/2025 at 16:16
== END ==
LOC: CT 14:15
PROVIDERS: PCP Student in an Organized Health Care Education/Training Program; Referring Provider Student in an Organized Health Care Education/Training Program; Visit Provider Student in an Organized Health Care Education/Training Program
DX: S42.332D Displaced oblique fracture of shaft of humerus, left arm, subsequent encounter for fracture with routine healing (principal); L03.112 Cellulitis of left axilla; M25.412 Effusion, left shoulder; R59.0 Localized enlarged lymph nodes; X58.XXXD Exposure to other specified factors, subsequent encounter; Z96.612 Presence of left artificial shoulder joint
CPT/HCPCS: 73201; Q9967

== ENCOUNTER 2025-08-26 18:11 | Emergency (ER) | payer MEDICARE, OTHER, SELFPAY ==
[2024-01-21 10:05] VITALS: BMI 38.0
[2025-08-26 18:37] VITALS: BP 140/79; PULSE 62; RESP 16; TEMP 36.9; O2SAT 99; BMI 25.7
== END 2025-08-26 21:53 | disposition left against medical advice (07) ==
PROVIDERS: Emergency Provider Emergency Medicine; PCP Student in an Organized Health Care Education/Training Program
DX: Z53.21 Procedure and treatment not carried out due to patient leaving prior to being seen by health care provider (principal)
CPT/HCPCS: 99281

== ENCOUNTER 2025-09-14 15:30 | Emergency (ER) | payer MEDICARE, OTHER, SELFPAY ==
[2024-01-21 10:05] VITALS: BMI 38.0
[2025-09-14 16:03] VITALS: BP 113/67; PULSE 83; RESP 18; TEMP 36.9; O2SAT 99; BMI 27.4
--- NOTE | 2025-09-14 16:53 | DI.CT.S_ITS ---
PROCEDURE: CT LE LT W CON INDICATIONS: r/o underlying infection TECHNIQUE: After the administration of intravenous contrast, 3 mm axial sections acquired of the left shoulder, with coronal and sagittal reformats. COMPARISON: [facility], CT, CT UE LT W CON, 08/12/2025, 14:17. FINDINGS: Image quality: Diagnostic. Bones: Patient is status post prior left shoulder reverse arthroplasty and internal fixation of left proximal femoral shaft. Surgical hardware are in their expected position without obvious hardware loosening or failure. No suspicious intraosseous lesion. No acute fracture or dislocation. Moderate acromioclavicular joint osteoarthritic changes are seen. Visualized left ribs are intact. No abnormal periosteal reaction or cortical destruction is seen. Soft tissues: There is suggestion of small to moderate left shoulder joint effusion. No gross calcified intra-articular loose bodies. No peripherally enhancing drainable fluid collection is seen. No abnormal soft tissue calcifications. Prominent left axillary lymph nodes are seen likely reactive in nature. Visualized left lung field is clear. IMPRESSION: 1. Prior left shoulder surgery with postsurgical changes. No obvious hardware loosening or failure. No acute fracture or dislocation. No CT evidence of osteomyelitis. Evaluation is slightly limited due to significant beam hardening artifacts. 2. Small to moderate amount of left shoulder joint effusion without calcified intra-articular loose bodies. No enhancing soft tissue mass or drainable abscess collection. No abnormal soft tissue calcifications. Mildly prominent left axillary lymph nodes likely reactive in nature. Dictated by: Markel Carrera M.D. on 09/14/2025 at 17:49 Approved by: Markel Carrera M.D. on 09/14/2025 at 17:52
[2025-09-14 17:31] LABS: Add Manual Diff / Slide Review NO; Hematocrit 36.2 % (36-46); Hemoglobin 12.0 g/dL (12.0-16.0); Lymphocytes Absolute Auto 2100 /uL (1100-4500); Mean Corpuscular HGB Conc 33.1 % (30-36); Mean Corpuscular Hemoglobin 27.6 PG (26-34); Mean Corpuscular Volume 83.6 fL (80-100); Platelet Count 410 X10^3/uL (150-400)
--- NOTE | 2025-09-14 20:39 | ED.SKABFB ---
HPI - Skin/Abscess/Foreign Bdy General Chief complaint: Skin/Abscess/Foreign Body Stated complaint: WIC ref, sore/cyst L shoulder Time Seen by Provider: 09/14/25 15:46 Source: patient Mode of arrival: Ambulatory Limitations: no limitations History of Present Illness HPI narrative: The patient is a 70 year old female presenting for a wound check. Her past medical history is notable for a chronic left arm pain after upper extremity fracture s/p ORIF and re-fracture requiring hardware placement, which was later complicated by a left upper shoulder abscess, she also has a history of anxiety, depression, and PTSD. She reports that the abscess was drained in July, but since that time the wound has not fully healed, raising concern for possible hardware related complications. She denies fever, chills, nausea, vomiting, decreased range of motion, pain, or paresthesias in the left shoulder. No new trauma or systemic symptoms reported. Related Data Previous Rx's ?Medication ?Instructions ?Recorded albuterol sulfate 2.5 mg/3 mL 2.5 mg (3 mL) inhalation Q4-6H PRN 12/29/19 (0.083 %) solution for nebulization shortness of breath or wheezing #90 mL albuterol sulfate 90 mcg/actuation 2 puff inhalation Q6H PRN 08/25/21 aerosol inhaler shortness of breath or wheezing #25.5 grams epinephrine 0.3 mg/0.3 mL 0.3 mg (0.3 mL) IM ONCE #2 ea 10/12/23 injection, auto-injector (EpiPen 2-Mark) nitroglycerin 0.3 mg sublingual 0.3 mg sublingual Q5M PRN chest 10/12/23 tablet pain #10 tabs ondansetron 8 mg disintegrating 8 mg PO Q12H PRN nausea and 12/06/23 tablet vomiting #60 tabs albuterol 90 mcg-budesonide 80 2 inh inhalation ONCE #10.7 grams 04/25/24 mcg/actuation HFA aerosol inhaler (Airsupra) hydroxyzine pamoate 25 mg capsule 25 mg PO BID PRN itching #60 caps 04/25/24 (Vistaril) Disabled Parking Permit #1 ea 12/05/24 budesonide-formoterol HFA 160 2 puff PO BID #30.6 grams 02/27/25 mcg-4.5 mcg/actuation aerosol inhaler prednisone 20 mg tablet 40 mg (2 x 20 mg) PO DAILY #6 tabs 03/10/25 oxycodone 10 mg tablet 10 mg PO QID PRN pain #120 tabs 04/21/25 oxycodone 10 mg tablet 10 mg PO QID PRN pain #120 tabs 04/21/25 pregabalin 150 mg capsule 150 mg PO BID #60 caps 04/21/25 vortioxetine 20 mg tablet 20 mg PO DAILY 90 days #90 tabs 04/23/25 clonazepam 1 mg tablet 1 mg PO BID #60 tabs 08/24/25 oxycodone 10 mg tablet 10 mg PO Q4H PRN pain #30 tabs 09/15/25 Allergies Allergy/AdvReac Type Severity Reaction Status Date / Time sulfamethoxazole (From Allergy Severe HIVES AND Verified 09/14/25 16:01 SEPTRA) THROAT SWELLING trimethoprim (From ) Allergy Severe HIVES AND Verified 09/14/25 16:01 THROAT SWELLING venom-honey bee (BEE VENOM Allergy Severe ANAPHYLAXIS Verified 09/14/25 16:01 (HONEY BEE)) peanut (PEANUT) Allergy Intermediate ITCHING Verified 09/14/25 16:01 alendronate sodium AdvReac Severe FELT Verified 09/14/25 16:01 (ALENDRONATE SODIUM) TERRIBLE, CHEST PAINS aspirin AdvReac Severe GI Bleed Verified 09/14/25 16:01 ergot alkaloids (ERGOT AdvReac Severe I DON'T Verified 08/19/25 18:51 ALKALOIDS) FEEL RIGHT, FEELING LIKE I'M FALLING BACKWARD ibuprofen AdvReac Severe GI Bleed Verified 09/14/25 16:01 sumatriptan (SUMATRIPTAN) AdvReac Mild FELT Verified 09/14/25 16:01 WEIRD FOR 2 DAYS [place] Allergy Severe Blisters Uncoded 09/14/25 16:01 in mouth, swelling, dyspnea Review of Systems Review of Systems ROS Unobtainable: All systems reviewed & are unremarkable except as noted in HPI and below Patient History Medical History Deviated septum Numbness Essential hypertension Iron deficiency anemia Tobacco use Panic attack Asthma Vertigo (~2004) Sleep apnea (Unknown) Osteoporosis (~2006) Allergic rhinitis (1958) Osteoarthritis (1977) Anxiety (~1975) Depression (~1975) PTSD (post-traumatic stress disorder) (~1975) Fractures (2015) Osteopenia (2010) Chickenpox (1960) Measles (1960) Mumps (1968) Hearing loss (2015) Tinnitus of both ears (2015) Urinary incontinence (2015) 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 Grandfather Accident Grandmother Stroke Social History marital status: number of children: 2 household members: spouse lives independently: Yes education level: other occupational status: other alcohol intake: never substance use type: marijuana Smoking Status: Former smoker Exam Narrative Exam Narrative: Vitals: Afebrile, all other vital signs normal Gen: Well developed, well nourished, no acute distressed Skin: There is a 1x1 cm circular open wound with soft tissue protruding from it. Skin around it was thickened and hyperkeratotic. No surrounding erythema or edema. Card: Regular, no murmurs, rubs, or gallops Pulm: No increased work of breathing, clear to auscultation bilateraly Abd: Soft nondistended, nontender to palpation Ext: No edema in bilaterally lower extremity Neuro: A&O x 4, CN grossly intact, moving all 4 extremities spontaneous Psych: Appropriate Initial Vital Signs Initial Vital Signs: Vital Signs Temperature 98.5 F 09/14/25 16:03 Pulse Rate 83 09/14/25 16:03 Respiratory Rate 18 09/14/25 16:03 Blood Pressure 113/67 09/14/25 16:03 Pulse Oximetry 99 09/14/25 16:03 Oxygen Delivery Method Room Air 09/14/25 16:03 Course Orders Ordered: ED Orders 09/14/25 16:53 CT LE LT w con Stat 09/14/25 17:20 CBC Auto Diff [Complete Blood Count AUTO DIFF] Stat Vital Signs Vital signs: Vital Signs - 8 hr 09/14/25 16:03 Temperature 98.5 F Pulse Rate 83 Respiratory Rate 18 Blood Pressure 113/67 Pulse Oximetry 99 Oxygen Delivery Method Room Air MDM - Skin/Abscess/Foreign Bdy Lab Data 09/14/25 17:20 Labs: Lab Results 09/14/25 Range/Units 17:20 WBC 8.8 (4.5-11.0) X10^3/uL RBC 4.33 (4.0-5.2) X10^6/uL Hgb 12.0 (12.0-16.0) g/dL Hct 36.2 (36-46) % MCV 83.6 (80-100) fL MCH 27.6 (26-34) PG MCHC 33.1 (30-36) % RDW 18.3 H (11.6-14.8) % Plt Count 410 H (150-400) X10^3/uL Neut % (Auto) 65.3 (50-75) % Lymph % (Auto) 24.1 L (25-40) % [place] % (Auto) 6.0 (3-14) % Eos % (Auto) 3.1 (2-4) % Baso % (Auto) 1.5 (0-2) % Neut # (Auto) 5700 (6522-1833) /uL Lymph # (Auto) 2100 (3735-6736) /uL [place] # (Auto) 500 (0-900) /uL Eos # (Auto) 300 (0-450) /uL Baso # (Auto) 100 (0-100) /uL Imaging Data CT - left upper extremity: Radiologist's Impression: ADDENDUM This report includes an Addendum and supersedes previous reports for this exam. PROCEDURE: CT LE LT W CON INDICATIONS: r/o underlying infection TECHNIQUE: After the administration of intravenous contrast, 3 mm axial sections acquired of the left shoulder, with coronal and sagittal reformats. COMPARISON: [facility], CT, CT UE LT W CON, 08/12/2025, 14:17. FINDINGS: Image quality: Diagnostic. Bones: Patient is status post prior left shoulder reverse arthroplasty and internal fixation of left proximal femoral shaft. Surgical hardware are in their expected position without obvious hardware loosening or failure. No suspicious intraosseous lesion. No acute fracture or dislocation. Moderate acromioclavicular joint osteoarthritic changes are seen. Visualized left ribs are intact. No abnormal periosteal reaction or cortical destruction is seen. Soft tissues: There is suggestion of small to moderate left shoulder joint effusion. No gross calcified intra-articular loose bodies. No peripherally enhancing drainable fluid collection is seen. No abnormal soft tissue calcifications. Prominent left axillary lymph nodes are seen likely reactive in nature. Visualized left lung field is clear. IMPRESSION: 1. Prior left shoulder surgery with postsurgical changes. No obvious hardware loosening or failure. No acute fracture or dislocation. No CT evidence of osteomyelitis. Evaluation is slightly limited due to significant beam hardening artifacts. 2. Small to moderate amount of left shoulder joint effusion without calcified intra-articular loose bodies. No enhancing soft tissue mass or drainable abscess collection. No abnormal soft tissue calcifications. Mildly prominent left axillary lymph nodes likely reactive in nature. Dictated by: Markel Carrera M.D. on 09/14/2025 at 17:49 Approved by: Markel Carrera M.D. on 09/14/2025 at 17:52 ADDENDUM: Ill-defined small fluid collection in left anterior medial upper arm near left axilla which corresponds to patient's reported area of palpable lump and measures approximately 1.4 x 1.6 cm in size. No definite well-defined enhancing wall is seen. The above-mentioned area is possibly communicating with underlying left shoulder joint capsule. Evaluation is slightly limited due to presence of significant beam hardening artifacts. If indicated, aspiration of this collection can be done for more definitive diagnosis. Dictated by: Markel Carrera M.D. on 09/14/2025 at 20:21 Approved by: Markel Carrera M.D. on 09/14/2025 at 20:25 [facility] Narrative Medical decision making narrative: Patient is a 70 year old female with a history of left upper extremity fracture and ORIF with recent abscess formation at the left anterior shoulder s/p incision and drainage who presents for wound check. -- EMR Review: Reviewed ER encounter dated 05/16/25 -- Differential diagnosis: Abscess, poor wound healing, fistula, other. -- Labs: CBC without leukocytosis or left shift, no anemia, platelets 410. -- Imaging: No concerning findings on CT left shoulder. -- EKG: Not indicated. -- Consults: I called radiology attending as the soft tissue outpouching was not ED summary: The patient presents with concern for a persistent nonhealing wound and possible hardward related complication following prior abscess drainage. She is afebrile, without systemic symptoms, and laboratory studies do not indicate acute infection. Imaging demonstrates a small, ill defined fluid collection without a clear abscess wall and with possible communication to the joint capsule, though visualization is limited by artifact. The patient requested closure of the wound using Steri Strips or a single suture. On examination, the skin was markedly keratotic, and the wound edges would not approximate without undermining the tissue, making simple closure inappropriate. Additionally, the protruding tissue did not retract naturally. I explained these findings to the patient and noted that closure might be technically possible but would require time and preparation (in my opinion, the skin would require undermining to bring the edges together). Due to the acuity of other patients under my care, she would need to wait before this could be attempted. The patient became upset and elected to leave the department. Given her stable exam, absence of systemic illness, and lack of a definitive drainable abscess, she is appropriate for outpatient follow up with orthopedics or her operating surgeon. She was counseled on return precautions, including fever, worsening pain, spreading erythema, increased drainage, or decreased range of motion. Discharge Plan Departure Patient Disposition: Home Clinical Impression: Wound check, abscess Activity Restrictions/Additional Instructions: You were seen in the emergency department for concerns of Re formation of an abscess. In the ER CT scan of his shoulder did not reveal a abscess formation. The wound on your shoulder is soft tissue protruding. You left the ER prior to being able to fully treated. I recommend that you follow up your primary care physician for wound care. Prescriptions: No Action nitroglycerin 0.3 mg tablet, sublingual 0.3 mg SL Q5M PRN (Reason: chest pain) Qty: 10 1RF Rx Instructions: do not exceed 3 doses per episode epinephrine [EpiPen 2-Mark] 0.3 mg/0.3 mL auto-injector 0.3 mg IM ONCE Qty: 2 2RF Rx Instructions: as a single dose; may repeat once ondansetron 8 mg tablet,disintegrating 8 mg PO Q12H PRN (Reason: nausea and vomiting) Qty: 60 0RF budesonide-formoterol 160-4.5 mcg/actuation HFA aerosol inhaler 2 puff PO BID Qty: 30.6 9RF prednisone 20 mg tablet 40 mg PO DAILY Qty: 6 0RF oxycodone 10 mg tablet 10 mg PO QID PRN (Reason: pain) Qty: 120 0RF oxycodone 10 mg tablet 10 mg PO QID PRN (Reason: pain) Qty: 120 0RF pregabalin 150 mg capsule 150 mg PO BID Qty: 60 5RF albuterol sulfate 2.5 mg /3 mL (0.083 %) solution for nebulization 2.5 mg INHALATION Q4-6H PRN (Reason: shortness of breath or wheezing) Qty: 90 0RF hydroxyzine pamoate [Vistaril] 25 mg capsule 25 mg PO BID PRN (Reason: itching) Qty: 60 3RF Airsupra 90-80 mcg/actuation HFA aerosol inhaler 2 inh inhalation ONCE Qty: 10.7 0RF Rx Instructions: as a single dose; may repeat up to 6 doses per day (12 inhalations) vortioxetine 20 mg tablet 20 mg PO DAILY 90 Days Qty: 90 3RF clonazepam 1 mg tablet 1 mg PO BID Qty: 60 1RF albuterol sulfate 90 mcg/actuation HFA aerosol inhaler 2 puff INHALATION Q6H PRN (Reason: shortness of breath or wheezing) Qty: 25.5 3RF (DME) Disabled Parking Permit See Rx Instructions .Route .MEDSUPPLY Qty: 1 0RF Rx Instructions: I find this patient to be medically disabled and qualified for Disabled Parking as indicated, and signed, on the accompanying Disabled Parking Application for Individuals ; oxycodone 10 mg tablet 10 mg PO Q4H PRN (Reason: pain) Qty: 30 0RF Referrals: Maura Umana MD [Primary Care Provider, [facility]] Stand Alone Forms: Patient Portal/API
== END 2025-09-14 20:30 | disposition home or self-care (01) ==
PROVIDERS: Emergency Provider Student in an Organized Health Care Education/Training Program; PCP Student in an Organized Health Care Education/Training Program
DX: Z48.00 Encounter for change or removal of nonsurgical wound dressing (principal); L02.414 Cutaneous abscess of left upper limb
CPT/HCPCS: 36415; 73701; 85025; 99283; 99284; Q9967